=== PATIENT | female | born 1935 | race Caucasian/White ===

== ENCOUNTER 2017-12-29 05:32 | Emergency (ER) | payer MEDICARE ==
[2017-12-29] MEDS ORDERED: Acetaminophen TAB* 325 MG PO ONE (06:08)
--- NOTE | 2017-12-29 06:16 | ED ---
Back Pain - HPI Summary HPI Summary: Patient presents with low back and coccyx pain status post fall at 4 AM this morning. She reports she has MS and occasionally has difficulty with strength especially on the right side. She was up going to the bathroom and upon returning to her bed using her walker, she reports she lost her footing and fell back onto her bottom that all the way back hitting her head. She resides in her son's [facility] and landed on concrete. She denies numbness, tingling or new onset weakness in her lower extremities however she does have a good bit of soreness and aching in her coccyx and low back region. This is made worse with flexion at the hips and lumbar spine. She is able to move her legs at baseline. She denies any new incontinence of urine and no incontinence of her bowel since fall. Additionally, she denies loss of consciousness, headache, change in vision (note: She always has double vision due to her MS), nausea, vomiting, fatigue, neck pain, upper back pain, chest pain, abdominal pain. She also denies any preceding symptoms such as dizziness, shortness of breath, weakness and no symptoms to correlate with pneumonia or urinary tract infection. History of diabetes, hypertension and thyroid disorder all of which she treats with medication. Reports her glucose levels her labile and she can range from 150-270. She reports she does not note any change in her symptoms when her blood sugar is high. Will check today. It is also noted that her blood pressure is high however she is quite uncomfortable and anxious at this time. Systolic blood pressure decreased after evaluation and reassurance. 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 - son Pain Intensity: 6 - Allergies/Home Medications Allergies/Adverse Reactions: Allergies Allergy/AdvReac Type Severity Reaction Status Date / Time Latex, Natural Rubber Allergy Rash And Verified 12/29/17 05:37 Itching Penicillins Allergy Hives Verified 12/29/17 05:37 Home Medications: Home Medications Aspirin [Aspirin Childrens 81 MG] 81 mg PO DAILY 12/29/17 [History Confirmed ] Calcium Carb/D3/Magnesium/Zinc [Patrick Mag Zinc + D3 Tablet] 1 each PO DAILY [History Confirmed 12/29/17] Cranberry 500 mg PO DAILY 12/29/17 [History Confirmed 12/29/17] Esomeprazole Magnesium [Nexium] 40 mg PO EVERY OTHER DAY 12/29/17 [History Confirmed 12/29/17] Folic Acid TAB* [Folvite TAB*] 1 mg PO DAILY 12/29/17 [History Confirmed ] Insulin Aspart [Novolog] 10 unit SQ TID WITH MEALS 12/29/17 [History Confirmed 12/29/17] Insulin Glargine,Hum.rec.anlog [Lantus] 30 unit SC QPM 12/29/17 [History Confirmed 12/29/17] Lactobac No.41/Bifidobact No.7 [Probiotic-10] 1 cap PO DAILY 12/29/17 [History Confirmed 12/29/17] Lecithin, Soy [Lecithin] 1,200 mg PO DAILY 12/29/17 [History Confirmed 12/29/17] Levothyroxine TAB* [Synthroid TAB*] 100 mcg PO DAILY 12/29/17 [History Confirmed 12/29/17] Meloxicam [Mobic] 7.5 mg PO DAILY 12/29/17 [History Confirmed 12/29/17] Ropinirole HCl 0.25 mg PO QID 12/29/17 [History Confirmed 12/29/17] Valsartan [Valsartan 320 MG] 320 mg PO DAILY 12/29/17 [History Confirmed ] PMH/Surg Hx/FS Hx/Imm Hx Previously Healthy: Yes Endocrine/Hematology History: Reports: Hx Thyroid Disease - takes levothyroxine Denies: Hx Anticoagulant Therapy - fish oil daily, Hx Blood Disorders, Hx Anemia, Hx Unexplained Bleeding Cardiovascular History: Reports: Hx Hypertension Denies: Hx Atrial Fibrillation, Hx Congestive Heart Failure, Hx Hypercholesterolemia, Hx Hypotension, Hx Myocardial Infarction History: Denies: Hx Acute Renal Failure, Hx Chronic Renal Failure Musculoskeletal History: Reports: Hx Arthritis - started meloxicam 3 weeks ago - works well for "inflammed" joints Sensory History: Reports: Hx Contacts or Glasses, Hx Vision Problem - diploplia d/t MS Opthamlomology History: Reports: Hx Contacts or Glasses Neurological History: Reports: Other Neuro Impairments/Disorders - MS w/ Rt side weakness - Immunization History Date of Tetanus Vaccine: unk Date of Influenza Vaccine: none Infectious Disease History: Yes Infectious Disease History: Denies: Traveled Outside the [place] in Last 30 Days - Family History Known Family History: Positive: None - Social History Occupation: Retired Lives: With Family - basement apt of son's home Alcohol Use: None Hx Substance Use: No Substance Use Type: Reports: None Hx Tobacco Use: No Smoking Status (MU): Never Smoked Tobacco Physical Exam Vital Signs On Initial Exam: Initial Vitals Temp Pulse Resp BP Pulse Ox 98.1 F 70 16 186/78 99 12/29/17 05:34 12/29/17 05:34 12/29/17 05:34 12/29/17 05:34 12/29/17 05:34 Diagnostics - Vital Signs Vital Signs Temp Pulse Resp BP Pulse Ox 12/29/17 05:34 98.1 F 70 16 186/78 99 - Laboratory Result Diagrams: 12/29/17 08:49 12/29/17 09:03 Lab Statement: Any lab studies that have been ordered have been reviewed, and results considered in the medical decision making process. Re-Evaluation - Re-Evaluation First Eval Change: Unchanged Second Eval Change: Improved - with ketorolac - did not need morphine - transitioning easier - able to stand, pivot to commode and wheelchair with minimal assistance (baseline as she uses walker at home). Back Pain Course/Dx - Course Course Of Treatment: CT cervical spine/brain: no acute findings. XR's: Glucose : 150 (good range for her). No relief w/ acetaminophen and XR questionable w/ OA and osteopenia - CT confirms compression fx's and stenosis. Given injury and location of pain, suspect compression fx's are new vs old. Pain was controlled with meds here and she will go home w/ precautions, meds and educated both pt and son about danger s/sx of when to return to ED. They agree w/ plan. - Diagnoses Provider Diagnoses: Closed compression fracture of lumbar vertebra, Spinal stenosis, lumbar, Fall from standing Discharge - Sign-Out/Discharge Documenting (check all that apply): Patient Departure - Discharge Plan Condition: Stable Disposition: HOME Prescriptions: Lidocaine PATCH 5%* [Lidoderm 5% Patch*] 1 patch TRANSDERM DAILY PRN #20 patch PRN Reason: Pain Patient Education Materials: Vertebral Compression Fracture (ED), Fall Prevention for Older Adults (ED), Lumbar Spinal Stenosis (ED) Referrals: Naif Rojas MD [Primary Care Provider] - Additional Instructions: You appear to have compression fractures of your L2 and L5 lumbar vertebrae. Based on your injury, location of your pain and severity of pain, it is suspected that these are new fractures. You will continue anti-inflammatory pain medication (either mobic OR ibuprofen but not both) for this injury. You may also try topical pain patches over the area for relief. It is important that you transition slowly from lying to sitting and to standing. You may also want to avoid movement such as rotation, extension of your lower back (i.e. arching), and flexing (i.e. bending forward). You may alternate ice and heat for relief as well. Follow-up with your PCP early next week to address progression of injury and prescribe osteopenia treatment as needed - call today to schedule an appointment. *If in the meantime you develop change in bowel or bladder habits change in lower extremity paresthesia or weakness or new onset of numbness tingling or weakness, return to the emergency department. - Billing Disposition and Condition Condition: STABLE Disposition: Home
--- NOTE | 2017-12-29 06:48 | RAD ---
EXAM: CT Head Without Intravenous Contrast CLINICAL HISTORY: 82 years old, female; Injury or trauma; Fall; Initial encounter; Concussion / head injury; Without loss of consciousness; Injury date: ; Additional info: Fall - struck head TECHNIQUE: Axial computed tomography images of the head/brain without intravenous contrast. All CT scans at this facility use at least one of these dose optimization techniques: automated exposure control; mA and/or kV adjustment per patient size (includes targeted exams where dose is matched to clinical indication); or iterative reconstruction. Coronal reformatted images were created and reviewed. COMPARISON: No relevant prior studies available. FINDINGS: Brain: No acute intracranial hemorrhage. No acute infarct. Periventricular and subcortical white matter changes are present, with no associated mass effect, nonspecific, but may be compatible with microvascular ischemic disease. Midline shift: No midline shift. Ventricles: Unremarkable. No ventriculomegaly. Bones/joints: Unremarkable. No acute fracture. Soft tissues: Unremarkable. Sinuses: Unremarkable as visualized. No acute sinusitis. Mastoid air cells: Unremarkable as visualized. No mastoid effusion. IMPRESSION: No acute intracranial hemorrhage. To contact [facility] with a general question: Operations Center - [phone] For direct physician to physician contact: Physician Hotline - [phone] [facility] (ad Facility ID #[id number])
--- NOTE | 2017-12-29 07:18 | RAD ---
EXAM: CT Cervical Spine Without Intravenous Contrast EXAM DATE/TIME: 12/29/2017 6:36 AM CLINICAL HISTORY: 82 years old, female; Injury or trauma; Fall; Initial encounter; Concussion /head injury; Injury date: ; Additional info: Fall - struck head TECHNIQUE: Axial computed tomography images of the cervical spine without intravenous contrast. All CT scans at this facility use at least one of these dose optimization techniques: automated exposure control; mA and/or kV adjustment per patient size (includes targeted exams where dose is matched to clinical indication); or iterative reconstruction. Coronal and sagittal reformatted images were created and reviewed. COMPARISON: No relevant prior studies available. FINDINGS: Vertebrae: Degenerative changes of multiple articular facets are demonstrated bilaterally. There is moderate spondylosis. Soft tissues: Unremarkable. Sinuses: Small amount of fluid is identified in the sphenoid sinus. DISCS/SPINAL CANAL/NEURAL FORAMINA: There is narrowing of the intervertebral disc spaces at C3-4-5-6-7 and at T1-2. C2-C3: At C2-3, there is approximately 2 mm anterior malalignment of C2 in relationship to C3. C3-C4: At C3-4, there is a disc osteophyte complex with impingement on the neural foramen bilaterally and mild spinal stenosis. There is approximately 3 mm anterior malalignment of C3 in relationship to C4. C4-C5: At C4-5, there is a disc osteophyte complex with impingement on the neural foramen bilaterally and moderate spondylosis. There is some cord compression. C5-C6: At C5-6, there is a disc osteophyte complex with impingement on the neural foramen bilaterally and moderate to marked spinal stenosis. There is some cord compression. C6-C7: At C6-7, there is a disc osteophyte complex with impingement on the neural foramen bilaterally and mild to moderate spinal stenosis C7-T1: No disc herniation. No spinal stenosis. No neural foraminal narrowing. IMPRESSION: 1. No acute fracture. 2. Vertebral body malalignment at C2-3-4, more likely degenerative in nature. 3. Extensive degenerative changes of the cervical spine, as described above. 4. Sphenoid sinusitis. To contact [facility] with a general question: [facility] - [phone] For direct physician to physician contact: Physician Hotline - [phone] [facility] ([facility] Facility ID #[id number])
--- NOTE | 2017-12-29 08:09 | RAD ---
Indication: Fall, back pain. 3 views of the lumbar spine are reviewed. There is diffuse osteopenia noted. There is mild compression of the superior endplate of L5 and L2. Age of these are indeterminate. There is disc space narrowing at T12-L1, L3-L4 and L5-S1. Facet arthropathy is noted. IMPRESSION: Mild compression superior endplate of L2 and L5 age is indeterminate but appear to be old. Degenerative disc disease with levoscoliosis centered at L3 noted at multiple levels.
[2017-12-29] MEDS ORDERED: Morphine INJ* 4 MG/ML 1 ML SYRINGE (NEW SYRINGE VERSION) IV ONE ×2 (08:43→10:08)
[2017-12-29] MEDS ORDERED: Ondansetron INJ* 2 MG/ML VIAL IV ONE (08:44)
--- NOTE | 2017-12-29 08:58 | RAD ---
HISTORY: possible acute compression fx, L2, L5 COMPARISONS: Radiograph dated December 29, 2017 TECHNIQUE: Multiple contiguous axial CT scans were obtained of the lumbar spine without intravenous contrast, with coronal and sagittal multiplanar reformations. FINDINGS: SPINAL CANAL: Evaluation of the central canal is limited on CT technique; however, there is no obvious canalicular mass or epidural hemorrhage. ALIGNMENT: There is a scoliotic curvature of the spine. VERTEBRAL BODIES: There is diffuse osteopenia. There is loss of vertebral body height at L5 and L2. There is no see any osseous retropulsion. JOINTS: There is diffuse facet osteoarthritis. MUSCULATURE: Unremarkable INTERVERTEBRAL DISCS: There is diffuse loss of intervertebral disc height throughout the spine. AXIAL IMAGES: T12-L1: There is no osseous neural foraminal narrowing or central canal stenosis. L1-L2: There is no osseous neural foraminal narrowing or central canal stenosis. L2-L3: There is no osseous neural foraminal narrowing or central canal stenosis. L3-L4: There is marginal osteophyte formation with bilateral facet hypertrophy. There is moderate bilateral neuroforaminal narrowing. There is mild narrowing of the central canal. L4-L5: There is a broad-based disc bulge with ligamentous and facet hypertrophy. There is moderate right and severe left neuroforaminal narrowing. There is severe narrowing of the central canal. L5-S1: There is broad-based disc bulge. There is bilateral facet hypertrophy. There is severe bilateral neuroforaminal narrowing. There is moderate narrowing of the central canal. SOFT TISSUES: The visualized soft tissues of the abdomen are unremarkable. OTHER: None IMPRESSION: 1. OSTEOPENIA. 2. SCOLIOSIS. 3. AGAIN NOTED ARE AGE-INDETERMINATE COMPRESSION DEFORMITIES OF L2 AND L5 WITHOUT OSSEOUS RETROPULSION. 4. DEGENERATIVE DISC DISEASE AND OSTEOARTHRITIS. 5. THERE IS SEVERE NARROWING OF THE CENTRAL CANAL AT L4-L5 WITH MODERATE NARROWING AT L5-S1 AND MILD NARROWING AT L3-L4. 6. THERE IS MULTILEVEL NEUROFORAMINAL NARROWING DESCRIBED ABOVE..
[2017-12-29 09:04] LABS: Hematocrit 39 % (35-47); Hemoglobin 13.4 g/dl (12.0-16.0); Mean Corpuscular HGB Conc 34 g/dl (31-36); Mean Corpuscular Hemoglobin 33 pg (27-31); Mean Corpuscular Volume 96 fL (80-97); Mean Platelet Volume 7.8 um3 (7.4-10.4); Platelet Count 223 10^3/ul (150-450); Red Blood Count 4.09 10^6/ul (4.00-5.40); Red Cell Distribution Width 13 % (10.5-15); White Blood Count 11.5 10^3/ul (3.5-10.8)
[2017-12-29 09:30] LABS: INR 0.87 (0.77-1.02)
[2017-12-29 09:43] LABS: EGFR Non-African American 47.1 (>60)
--- NOTE | 2017-12-29 09:43 | RAD ---
INDICATION: Sacrococcygeal injury. COMPARISON: Correlation is made with a prior x-ray study of the lumbar spine of the same day. TECHNIQUE: 3 views of the sacrococcygeal spine were obtained. FINDINGS: There is a lumbar scoliosis convex toward the left side. There is a mild compression fracture of the superior endplate of the L5 vertebra, age indeterminate. No additional fractures are seen. IMPRESSION: COMPRESSION FRACTURE OF THE L5 VERTEBRAL BODY, AGE INDETERMINATE.
[2017-12-29] MEDS ORDERED: Ketorolac INJ* 30 MG/ML 1 ML VIAL IV PUSH ONE (09:58)
[2017-12-29] MEDS ORDERED: Insulin ASPART (NF) 100 UNIT/ML VIAL SUBCUT ONE (10:27)
[2017-12-29 10:34] VITALS: BP 147/62
[2017-12-29] MEDS ORDERED: Lidocaine PATCH 5%* 1 PATCH TRANSDERM ONE (11:21)
== END 2017-12-29 11:51 | disposition home or self-care (01) ==
LOC: ED 05:32
DX: S32.050A Wedge compression fracture of fifth lumbar vertebra, initial encounter for closed fracture (principal); W18.30XA Fall on same level, unspecified, initial encounter; Y93.01 Activity, walking, marching and hiking; Y92.039 Unspecified place in apartment as the place of occurrence of the external cause; E11.9 Type 2 diabetes mellitus without complications; Z79.4 Long term (current) use of insulin; E07.9 Disorder of thyroid, unspecified; I10 Essential (primary) hypertension; Z88.0 Allergy status to penicillin; Z91.040 Latex allergy status
CPT/HCPCS: 36415; 70450; 72100; 72125; 72131; 72220; 80048; 85027; 85610; 85730; 96374; 96375; 99284; A9270-GY; J1885; J2270; J2405

== ENCOUNTER 2018-07-03 06:57 | Emergency (ER) | payer MEDICARE ==
[2018-07-03] MEDS ORDERED: traMADol TAB* 50 MG PO ONE (07:26)
[2018-07-03 08:20] LABS: ABS Basophils 0 10^3/ul (0-0.2); ABS Eosinophils 0 10^3/ul (0-0.6); ABS Lymphocytes 1.4 10^3/ul (1.0-4.8); ABS Monocytes 0.3 10^3/ul (0-0.8); ABS Neutrophils 3.8 10^3/ul (1.5-7.7); ABS Nucleated RBC 0 10^3/ul; Eosinophil % 0.8 %; Hematocrit 38 % (33-41); Hemoglobin 12.7 g/dL (12.0-16.0); Mean Corpuscular HGB Conc 34 g/dL (31-36); Mean Corpuscular Hemoglobin 33 pg (27-31); Mean Corpuscular Volume 97 fL (80-97); Mean Platelet Volume 8.1 fL (7.4-10.4); Nucleated Red Blood Cells % 0; Platelet Count 217 10^3/uL (150-450); Red Blood Count 3.89 10^6 /uL (3.70-4.87); Red Cell Distribution Width 13 % (10.5-15); White Blood Count 5.6 10^3/uL (3.5-10.8)
[2018-07-03 08:27] LABS: Urine Appearance Clear; Urine Bilirubin Negative (Negative); Urine Blood Negative (Negative); Urine Color Yellow; Urine Glucose Negative (Negative); Urine Ketones Negative (Negative); Urine Nitrite Negative (Negative); Urine Protein Negative (Negative); Urine Specific Gravity 1.014 (1.010-1.030); Urine Urobilinogen Negative (Negative)
[2018-07-03 08:30] LABS: Albumin 3.8 g/dL (3.2-5.2); Albumin/Globulin Ratio 1.4 (1-3); BUN/Creatinine Ratio 30.9 (8-20); Calcium 9.4 mg/dL (8.6-10.3); EGFR Non-African American 37.2 (>60); Globulin 2.8 g/dL (2-4); Potassium 4.3 mmol/L (3.5-5.0); Total Bilirubin 0.5 mg/dL (0.2-1.0); Total Protein 6.6 g/dL (6.4-8.9)
[2018-07-03] MEDS ORDERED: Cyclobenzaprine TAB* 10 MG PO ONE (10:27)
[2018-07-03] MEDS ORDERED: Ibuprofen TAB* 600 MG PO ONE (10:28)
[2018-07-03] MEDS ORDERED: predniSONE TAB* 20 MG PO ONE (10:28)
[2018-07-03 11:39] VITALS: BP 135/87
--- NOTE | 2018-07-03 11:59 | ED ---
Back Pain - HPI Summary HPI Summary: Patient is an 82-year-old female who presents to the ED with mid low back pain. She denies any trauma or injury. She denies any falls. She states this is acute onset 2 days ago and has been worsening. She has a home health aide at home on Monday/s for 2 hours each. Otherwise she is fairly independent. She does have a history of MS. No history of spinal fractures. She is endorsing pain at rest, however with movement and increase in pain at 9/ 10. She denies any numbness or tingling to the bilateral lower extremities. She denies any bladder or bowel dysfunction other than her usual. She states she is incontinent at baseline. Pain is radiating to the left rib cage. She denies any CP or SOB. - History of Current Complaint Chief Complaint: Barbara Stated Complaint: "BACK PAIN" PER EMS Time Seen by Provider: 07/03/18 06:59 Hx Obtained From: Patient Onset/Duration: Sudden Onset Onset/Duration: Started Hours Ago Timing: Constant Back Pain Location: Is Discrete @ - mid low back pain Severity Initially: Severe Severity Currently: Severe Pain Intensity: 7 Pain Scale Used: 0-10 Numeric Character: Sharp Aggravating Symptom(s): Movement, Lifting, Bending Alleviating Symptom(s): Rest, Position Associated Signs And Symptoms: Positive: Negative. Negative: Swelling, Redness , Bruising, Bladder Incontinence, Bowel Incontinence, Weight Loss, Pain with Weight Bearing - Risk Factors AAA Risk Factors: Negative TAD Risk Factors: Negative Cauda Equina Risk Factors: Negative Epidural Abscess Risk Factors: Negative - Allergies/Home Medications Allergies/Adverse Reactions: Allergies Allergy/AdvReac Type Severity Reaction Status Date / Time Latex, Natural Rubber Allergy Rash And Verified 07/03/18 07:11 Itching Penicillins Allergy Hives Verified 07/03/18 07:11 Home Medications: Home Medications Chlorthalidone 25 mg PO DAILY 07/03/18 [History Confirmed 07/03/18] Famotidine 40 mg PO DAILY 07/03/18 [History Confirmed 07/03/18] Losartan Potassium 200 mg PO DAILY 07/03/18 [History Confirmed 07/03/18] Multivitamin [Multivitamins] 1 cap PO DAILY 07/03/18 [History Confirmed 07/03/18 ] amLODIPine TAB* [Norvasc 5 mg TAB*] 10 mg PO DAILY 07/03/18 [History Confirmed 07/03/18] PMH/Surg Hx/FS Hx/Imm Hx Previously Healthy: Yes Endocrine/Hematology History: Reports: Hx Thyroid Disease - takes levothyroxine Denies: Hx Anticoagulant Therapy - fish oil daily, Hx Blood Disorders, Hx Anemia, Hx Unexplained Bleeding Cardiovascular History: Reports: Hx Hypertension Denies: Hx Atrial Fibrillation, Hx Congestive Heart Failure, Hx Hypercholesterolemia, Hx Hypotension, Hx Myocardial Infarction History: Denies: Hx Acute Renal Failure, Hx Chronic Renal Failure Musculoskeletal History: Reports: Hx Arthritis - started meloxicam 3 weeks ago - works well for "inflammed" joints Sensory History: Reports: Hx Contacts or Glasses, Hx Vision Problem - diploplia d/t MS Opthamlomology History: Reports: Hx Contacts or Glasses, Hx Vision Problem - diploplia d/t MS Neurological History: Reports: Other Neuro Impairments/Disorders - MS w/ Rt side weakness - Surgical History Surgery Procedure, Year, and Place: APPY, CARDIAC STENT - Immunization History Date of Tetanus Vaccine: unk Date of Influenza Vaccine: none Hx Pertussis Vaccination: No Immunizations Up to Date: Yes Infectious Disease History: No Infectious Disease History: Denies: Traveled Outside the [place] in Last 30 Days - Family History Known Family History: Positive: None - Social History Occupation: Unemployed Lives: Alone Alcohol Use: None Hx Substance Use: No Substance Use Type: Reports: None Hx Tobacco Use: No Smoking Status (MU): Never Smoked Tobacco Review of Systems Constitutional: Negative Negative: Fever, Chills, Fatigue, Skin Diaphoresis Negative: Palpitations, Chest Pain Negative: Shortness Of Breath, Cough Genitourinary: Negative Positive: no symptoms reported, see HPI Positive: Arthralgia - mid low back pain Skin: Negative Neurological: Negative All Other Systems Reviewed And Are Negative: Yes Physical Exam Triage Information Reviewed: Yes Vital Signs On Initial Exam: Initial Vitals Temp Pulse Resp BP Pulse Ox 98.3 F 85 18 134/74 100 07/03/18 07:01 07/03/18 07:01 07/03/18 07:01 07/03/18 07:01 07/03/18 07:01 Vital Signs Reviewed: Yes Appearance: Positive: Well-Appearing, Well-Nourished Skin: Positive: Warm, Skin Color Reflects Adequate Perfusion Head/Face: Positive: Normal Head/Face Inspection Eyes: Positive: EOMI, Conjunctiva Clear Neck: Positive: Supple Respiratory/Lung Sounds: Positive: Clear to Auscultation, Breath Sounds Present Cardiovascular: Positive: Pulses are Symmetrical in both Upper and Lower Extremities Musculoskeletal: Positive: Pain @ - mid low back pain - no pain to the bilateral ribs Neurological: Positive: Sensory/Motor Intact, Alert, Oriented to Person Place, Time, Speech Normal Psychiatric: Positive: Affect/Mood Appropriate Diagnostics - Vital Signs Vital Signs Temp Pulse Resp BP Pulse Ox 07/03/18 11:38 98.6 F 80 16 135/87 98 07/03/18 10:32 135/57 07/03/18 10:10 74 94 07/03/18 10:02 137/59 07/03/18 09:32 68 122/52 93 07/03/18 09:02 70 113/48 98 07/03/18 09:00 67 94 07/03/18 08:50 73 122/52 94 07/03/18 08:49 70 85 07/03/18 08:04 145/55 07/03/18 07:56 79 139/57 96 07/03/18 07:02 83 134/74 99 07/03/18 07:01 98.3 F 85 18 134/74 100 - Laboratory Lab Results: Lab Results 07/03/18 07/03/18 07/03/18 Range/Units 07:55 08:03 08:03 WBC 5.6 (3.5-10.8) 10^3/uL RBC 3.89 (3.70-4.87) 10^6 /uL Hgb 12.7 (12.0-16.0) g/dL Hct 38 (33-41) % MCV 97 (80-97) fL MCH 33 H (27-31) pg MCHC 34 (31-36) g/dL RDW 13 (10.5-15) % Plt Count 217 (150-450) 10^3/uL MPV 8.1 (7.4-10.4) fL Neut % (Auto) 68.2 % Lymph % (Auto) 24.0 % [place] % (Auto) 6.2 % Eos % (Auto) 0.8 % Baso % (Auto) 0.8 % Absolute Neuts (auto) 3.8 (1.5-7.7) 10^3/ul Absolute Lymphs (auto) 1.4 (1.0-4.8) 10^3/ul Absolute Monos (auto) 0.3 (0-0.8) 10^3/ul Absolute Eos (auto) 0 (0-0.6) 10^3/ul Absolute Basos (auto) 0 (0-0.2) 10^3/ul Absolute Nucleated RBC 0 10^3/ul Nucleated RBC % 0 Sodium 133 L (135-145) mmol/L Potassium 4.3 (3.5-5.0) mmol/L Chloride 98 L (101-111) mmol/L Carbon Dioxide 27 (22-32) mmol/L Anion Gap 8 (2-11) mmol/L BUN 42 H (6-24) mg/dL Creatinine 1.36 H (0.51-0.95) mg/dL Est GFR ( Amer) 45.0 (>60) Est GFR (Non-Af Amer) 37.2 (>60) BUN/Creatinine Ratio 30.9 H (8-20) Glucose 237 H (70-100) mg/dL Calcium 9.4 (8.6-10.3) mg/dL Total Bilirubin 0.50 (0.2-1.0) mg/dL AST 16 (13-39) U/L ALT 11 (7-52) U/L Alkaline Phosphatase 57 (34-104) U/L Total Protein 6.6 (6.4-8.9) g/dL Albumin 3.8 (3.2-5.2) g/dL Globulin 2.8 (2-4) g/dL Albumin/Globulin Ratio 1.4 (1-3) Urine Color Yellow Urine Appearance Clear Urine pH 5.0 (5-9) Ur Specific [place] 1.014 (1.010-1.030) Urine Protein Negative (Negative) Urine Ketones Negative (Negative) Urine Blood Negative (Negative) Urine Nitrate Negative (Negative) Urine Bilirubin Negative (Negative) Urine Urobilinogen Negative (Negative) Ur Leukocyte Esterase Negative (Negative) Urine Glucose Negative (Negative) Urine Ascorbic Acid * A (Negative) Result Diagrams: 07/03/18 08:03 07/03/18 08:03 Lab Statement: Any lab studies that have been ordered have been reviewed, and results considered in the medical decision making process. Back Pain Course/Dx - Course Course Of Treatment: Patient is evaluated for acute low back pain which is radiating to the left rib cage. She denies any urinary symptoms outside baseline. Patient endorses incontinence at baseline, but denies any bowel dysfunction. She denies any numbness or tingling to the bilateral lower extremities. She has good strength in the bilateral upper and lower extremities. History of clear located over the spine between L1 and L5. No step-off noted. No bruising noted. No signs of trauma. CT abdomen and pelvis , lumbar spine and thoracic spine obtained. This shows an endplate fracture of L1 with 2 mm retropulsion of the middle column without significant resulting acquired spinal stenosis. Unsure when she acquired this. Patient denies any falls since one year ago. Tramadol 25 mg given with mild improvement. Discussed case with social sciences department chair in the ED who is willing to place further health care at home with the patient at this time as she begins to improve. Patient is able to stand, pivot, and ambulate. Flexeril given prior to discharge. She is also given prednisone in the ED. She will be prescribed prednisone and tramadol and is encouraged Tylenol and ibuprofen. - Diagnoses Differential Diagnosis/HQI/PQRI: Positive: Fracture, Strain, Sprain Provider Diagnoses: Vertebral compression fracture Discharge - Sign-Out/Discharge Documenting (check all that apply): Patient Departure Patient Received Moderate/Deep Sedation with Procedure: No - Discharge Plan Condition: Stable Disposition: HOME Prescriptions: predniSONE TAB* [Deltasone TAB*] 50 mg PO DAILY #4 tab MDD 1 traMADol TAB* [Ultram*] 50 mg PO Q8H PRN #15 tab MDD 3 PRN Reason: Pain Patient Education Materials: Bone Density Test (DC) Referrals: Naif Rojas MD [Primary Care Provider] - Sebastian Mathew MD [Medical Doctor] - Additional Instructions: You're diagnosed with an endplate fracture of L1 on the vertebra As this was not caused by a fall or other trauma, I recommend you follow up with your PCP as this may be from low bone density Tramadol is prescribed to you at 3 times a day as needed for discomfort You may also take Tylenol 650 mg 3 times daily You may also take ibuprofen 600 mg 3 times daily, however do not exceed 3 days Moist heat to the area for discomfort - Billing Disposition and Condition Condition: STABLE Disposition: Home
== END 2018-07-03 11:38 | disposition home or self-care (01) ==
LOC: ED 06:57
DX: S32.019A Unspecified fracture of first lumbar vertebra, initial encounter for closed fracture (principal); S32.059A Unspecified fracture of fifth lumbar vertebra, initial encounter for closed fracture; G35 Multiple sclerosis; Z88.0 Allergy status to penicillin; X58.XXXA Exposure to other specified factors, initial encounter; Y92.9 Unspecified place or not applicable; I10 Essential (primary) hypertension; E07.9 Disorder of thyroid, unspecified
CPT/HCPCS: 36415; 72128; 72131; 74176; 80053; 81003; 85025; 99284; A9270-GY; J7512

== ENCOUNTER 2018-08-14 18:52 | Emergency (ER) | payer MEDICARE ==
--- NOTE | 2018-08-14 19:13 | UC ---
Dizzy HPI HPI Summary: 82 yo female with the acute onset of vertigo 3 days ago. Was in bathroom getting dressed bent over to pull up her pant and had severe vertigo and fell back landing on toilet seat Has had vertigo ever since Occurs when supine as well worse with position change no QURESHI no URI symptoms no CP or SOB no palpitations Has MS, DM , HTN and CAD uses a walker - History Of Current Complaint Chief Complaint: UCDizziness Stated Complaint: DIZZINESS Time Seen by Provider: 08/14/18 19:12 Hx Obtained From: Patient Onset/Duration: Sudden Onset, Lasting Days Timing: Constant Severity Initially: Severe Severity Currently: Moderate Pain Intensity: 0 Pain Scale Used: 0-10 Numeric Character: Room Spinning Aggravating Factor(s): Position Change, Supine To Erect, Change In Head Position Alleviating Factor(s): Other - moving slowly Associated Signs And Symptoms: Positive: Unsteady Gait. Negative: Nausea, Vomiting, Diaphoresis, Tinnitus, Chest Pain, SOB, Palpitations, Visual Changes, Decreased Oral Intake, Change In Medication, Change In Diet, OTC Medications - Allergies/Home Medications Allergies/Adverse Reactions: Allergies Allergy/AdvReac Type Severity Reaction Status Date / Time Latex, Natural Rubber Allergy Rash And Verified 08/14/18 19:04 Itching Penicillins Allergy Hives Verified 08/14/18 19:04 Home Medications: Home Medications Alendronate Sodium [Fosamax-] 08/14/18 [History Confirmed 08/14/18] PMH/Surg Hx/FS Hx/Imm Hx Previously Healthy: Yes Endocrine History: Diabetes Cardiovascular History: Hypertension, Myocardial Infarction Neurological History: Other Other Neurological History: MS Other History Of: Negative For: Anticoagulant Therapy - fish oil daily - Surgical History Surgical History: Yes Surgery Procedure, Year, and Place: APPENDIX, CARDIAC STENT, CHOLECYSTECTOMY, TUMOR REMOVED FROM FOOT, BILAT CATARACTS - Family History Known Family History: Positive: Hypertension, Other - twin sister of CVA age 65 - Social History Alcohol Use: None Substance Use Type: None Smoking Status (MU): Never Smoked Tobacco Review of Systems All Other Systems Reviewed And Are Negative: Yes Constitutional: Positive: Negative Skin: Positive: Negative Eyes: Positive: Negative ENT: Positive: Negative Respiratory: Positive: Negative Cardiovascular: Positive: Negative Gastrointestinal: Positive: Negative Genitourinary: Positive: Negative Motor: Positive: Negative Neurovascular: Positive: Other - vertigo Musculoskeletal: Positive: Negative Neurological: Positive: Negative Psychological: Positive: Negative Physical Exam Triage Information Reviewed: Yes Appearance: No Pain Distress Vital Signs: Initial Vital Signs Temp 98.2 F 08/14/18 18:59 Pulse 92 08/14/18 18:59 Resp 16 08/14/18 18:59 BP 172/99 08/14/18 18:59 Pulse Ox 98 08/14/18 18:59 Eyes: Positive: Conjunctiva Clear, Other: - small pupils ENT: Negative: Hearing grossly normal - slight LA POSTA, Nasal congestion, Nasal drainage, Tonsillar swelling, Tonsillar exudate, Muffled voice, Hoarse voice, Uvula midline Dental: Negative: Abscess @ Neck: Positive: Nontender, No Lymphadenopathy, Other: - no bruits Respiratory: Positive: Lungs clear, Normal breath sounds, No respiratory distress, No accessory muscle use Cardiovascular: Positive: RRR, No Murmur Musculoskeletal: Positive: ROM Intact, No Edema Neurological: Positive: Alert, Other: - GCS 15/15, no pronator drift, no facial weakness, unsteady gait with walker, tremors Psychological Exam: Normal Skin Exam: Normal Diagnostics - Laboratory Lab Results: FS glucose 268 - EKG Cardiac Rate: NL Cardiac Rhythm: Sinus: Normal Ectopy: PVCs ST Segment: Normal Dizzy Course/Dx - Differential Dx/Diagnosis Provider Diagnosis: Vertigo, constant Discharge - Sign-Out/Discharge Documenting (check all that apply): Patient Departure All imaging exams completed and their final reports reviewed: No Studies - Discharge Plan Condition: Stable Disposition: HOME-RECOMMEND TO ED Referrals: Naif Rojas MD [Primary Care Provider] - Additional Instructions: I suggest you go directly to the ER for evaluation of your vertigo - Billing Disposition and Condition Condition: STABLE Disposition: Home-Recommend to ED
[2018-08-14 19:44] VITALS: BP 146/56
== END 2018-08-14 19:57 | disposition home health service (06) ==
LOC: UCEAST 18:52
DX: R42 Dizziness and giddiness (principal); R26.81 Unsteadiness on feet; E11.9 Type 2 diabetes mellitus without complications; G35 Multiple sclerosis; Z95.5 Presence of coronary angioplasty implant and graft; Z88.0 Allergy status to penicillin; Z91.040 Latex allergy status
CPT/HCPCS: 93005; 99212; G0463

== ENCOUNTER 2018-08-14 20:11 | Emergency (ER) | payer MEDICARE ==
[2018-08-14] MEDS ORDERED: Meclizine TAB* 12.5 MG PO ONE (21:15)
--- NOTE | 2018-08-14 21:59 | ED ---
Dizziness - HPI Summary HPI Summary: Pt has been dizzy since Monday. Was sitting on toilet to put on clothes, when she bent over to put on pants everything started spinning. Fell back onto her seat, already has an issue with balancing due to MS. Continued dizziness throughout the day and was present with movement on Monday. Sitting up aggravates her dizziness. She reports nausea but denies any vomiting, headaches , and decreased ROM. She has a Hx of MS and stated that it was causing her shaking and double vision. She has no Hx of strokes or Sz. She reported that closing her eyes and lying down alleviated the symptoms but change of position and movement was aggravating for her. - History Of Current Complaint Chief Complaint: EDDizziness Stated Complaint: DIZZY/COMING FROM UC PER PT Time Seen by Provider: 08/14/18 21:04 Hx Obtained From: Patient Onset/Duration: Still Present, Suddenly - 08/12/18 while sitting up on the toilet. Severity Initially: Severe Severity Currently: Mild Character: Room Spinning, Dizzy Aggravating Factor(s): Position Change, Other - movement Alleviating Factor(s): Lying Down, Closing Eyes Associated Signs And Symptoms: Positive: Negative - Headache, ROM issues, abnormal shaking, Nausea, Visual Changes - room spinning, Other:. Negative: Vomiting - Allergies/Home Medications Allergies/Adverse Reactions: Allergies Allergy/AdvReac Type Severity Reaction Status Date / Time Latex, Natural Rubber Allergy Rash And Verified 08/14/18 21:49 Itching Penicillins Allergy Hives Verified 08/14/18 21:49 PMH/Surg Hx/FS Hx/Imm Hx Previously Healthy: No Endocrine/Hematology History: Reports: Hx Thyroid Disease Denies: Hx Anticoagulant Therapy - fish oil daily, Hx Blood Disorders, Hx Anemia, Hx Unexplained Bleeding Cardiovascular History: Reports: Hx Hypertension Denies: Hx Atrial Fibrillation, Hx Congestive Heart Failure, Hx Hypercholesterolemia, Hx Hypotension, Hx Myocardial Infarction History: Denies: Hx Acute Renal Failure, Hx Chronic Renal Failure Musculoskeletal History: Reports: Hx Arthritis - started meloxicam 3 weeks ago - works well for "inflammed" joints Sensory History: Reports: Hx Contacts or Glasses, Hx Vision Problem - diploplia d/t MS Opthamlomology History: Reports: Hx Contacts or Glasses, Hx Vision Problem - diploplia d/t MS Neurological History: Reports: Other Neuro Impairments/Disorders - MS w/ Rt side weakness - Surgical History Surgery Procedure, Year, and Place: APPENDIX, CARDIAC STENT, CHOLECYSTECTOMY, TUMOR REMOVED FROM FOOT, BILAT CATARACTS - Immunization History Date of Tetanus Vaccine: unk Date of Influenza Vaccine: none Infectious Disease History: Yes Infectious Disease History: Denies: Traveled Outside the [place] in Last 30 Days - Family History Known Family History: Positive: None, Hypertension, Other - twin sister of CVA age 65 - Social History Alcohol Use: None Hx Substance Use: No Substance Use Type: Reports: None Hx Tobacco Use: No Smoking Status (MU): Never Smoked Tobacco Review of Systems Positive: Diplopia Positive: Nausea. Negative: Vomiting Musculoskeletal: Other - abnormal shaking Negative: Headache, Weakness All Other Systems Reviewed And Are Negative: Yes Physical Exam - Summary Physical Exam Summary: Appearance: Well-appearing, Well-nourished, lying in bed comfortably Skin: Warm, dry, no obvious rash Eyes: sclera anictericLeft gaze nystagmus, no trouble with gaze fixation ENT: mucous membranes moist, pharynx appears normal Neck: Supple, nontender Respiratory: Clear to auscultation, no signs of respiratory distress Cardiovascular: Normal S1, S2. No murmurs. Normal distal pulses in tibial and radial bilaterally. Abdomen: Soft, nontender, normal active bowel sounds present Musculoskeletal: Normal, Strength/ROM Intact, Motor function in all 4 extremities is normal and symmetric. There is no rigidity or tremor noted. Neurological: A&Ox3, awake and alert, mentation is normal, speech is fluent and appropriate, Level of consciousness nml. The patient is alert and oriented. 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 Gaze is conjugate and without nystagmus. Peripheral vision is intact to confrontation. There are no gross sensory abnormalities to light touch. There is no truncal or fine motor ataxia. Gait is normal. Psychiatric: affect is normal, does not appear anxious or depressed Triage Information Reviewed: Yes Vital Signs On Initial Exam: Initial Vitals Temp Pulse Resp BP Pulse Ox 98.2 F 85 16 145/86 99 08/14/18 20:24 08/14/18 20:24 08/14/18 20:24 08/14/18 20:24 08/14/18 20:24 Vital Signs Reviewed: Yes Diagnostics - Vital Signs Vital Signs Temp Pulse Resp BP Pulse Ox 08/14/18 20:24 98.2 F 85 16 145/86 99 - Laboratory Lab Statement: Any lab studies that have been ordered have been reviewed, and results considered in the medical decision making process. Dizzy Course/Dx - Course Course Of Treatment: Pt has been dizzy since Monday. Was sitting on toilet to put on clothes, when she bent over to put on pants everything started spinning. Fell back onto her seat, already has an issue with balancing due to MS. Continued dizziness throughout the day and was present with movement on Monday. Her symptoms are couple of days old and are not consistent with a central cause of vertigo. The pt will be discharged with benign paroxysmal positional vertigo home with instructions to follow up with her PCP within 3 days and to return to the ED with any new or worsening symptoms. - Diagnoses Provider Diagnoses: Benign paroxysmal positional vertigo Discharge - Sign-Out/Discharge Documenting (check all that apply): Patient Departure - discharge Patient Received Moderate/Deep Sedation with Procedure: No - Discharge Plan Condition: Good Disposition: HOME Prescriptions: Meclizine TAB* [Antivert 12.5 TAB*] 25 mg PO TID PRN #20 tab PRN Reason: Dizziness Patient Education Materials: Benign Paroxysmal Positional Vertigo (ED) Referrals: Naif Rojas MD [Primary Care Provider] - - Billing Disposition and Condition Condition: GOOD Disposition: Home - Attestation Statements Document Initiated by Homer: Yes Documenting Scribe: Rustam Matias Provider For Whom Homer is Documenting (Include Credential): Joaquín Moran MD Scribe Attestation: Rustam Munoz scrmikeed for Joaquín Moran MD on 08/15/18 at 0503. Scribe Documentation Reviewed: Yes Provider Attestation: The documentation as recorded by the Rustam castillo accurately reflects the service I personally performed and the decisions made by me, Joaquín Moran MD Status of Scribe Document: Viewed
[2018-08-14 23:03] VITALS: BP 138/84
== END 2018-08-14 23:02 | disposition home or self-care (01) ==
LOC: ED 20:11
DX: H81.10 Benign paroxysmal vertigo, unspecified ear (principal); R11.0 Nausea; I10 Essential (primary) hypertension; G35 Multiple sclerosis; M19.90 Unspecified osteoarthritis, unspecified site; E07.9 Disorder of thyroid, unspecified; R26.81 Unsteadiness on feet; E11.9 Type 2 diabetes mellitus without complications; Z95.5 Presence of coronary angioplasty implant and graft; Z88.0 Allergy status to penicillin; Z91.040 Latex allergy status
CPT/HCPCS: 99282; A9270-GY

== ENCOUNTER 2019-04-02 10:27 | Emergency (ER) | payer MEDICARE, MEDICAID ==
[2019-04-02 11:01] VITALS: BP 157/61
--- NOTE | 2019-04-02 11:49 | UC ---
Complaint Female HPI - HPI Summary HPI Summary: LEFT FLANK PAIN THAT OCCASIONALLY RADIATES DOWN TO THE LEFT GROIN FOR THE PAST WEEK. SYMPTOMS WAX AND WANE. OCCASIONALLY HAS SOME NAUSEA. PATIENT DENIES ANY URINARY SYMPTOMS. SHE HAS BASELINE INCONTINENCE. NO PERSONAL HISTORY OF KIDNEY STONES. - History Of Current Complaint Chief Complaint: UCBackPain Stated Complaint: BACK PAIN Time Seen by Provider: 04/02/19 11:19 Hx Obtained From: Patient Onset/Duration: Gradual Onset, Lasting Days, Still Present Timing: Constant Severity Initially: Moderate Severity Currently: Moderate Pain Intensity: 8 Pain Scale Used: 0-10 Numeric Character: Sharp Aggravating Factor(s): Nothing Alleviating Factor(s): Nothing Associated Signs And Symptoms: Positive: Back Pain, Nausea. Negative: Fever, Vaginal Bleeding/Discharge - Allergies/Home Medications Allergies/Adverse Reactions: Allergies Allergy/AdvReac Type Severity Reaction Status Date / Time Latex, Natural Rubber Allergy Rash And Verified 04/02/19 11:01 Itching Penicillins Allergy Hives Verified 04/02/19 11:01 PMH/Surg Hx/FS Hx/Imm Hx - Additional Past Medical History Additional PMH: MULTIPLE SCLEROSIS Endocrine History: Diabetes, Hypothyroidism Cardiovascular History: Cardiac Disease, Hypertension Other History Of: Negative For: Anticoagulant Therapy - fish oil daily - Surgical History Surgical History: Yes Surgery Procedure, Year, and Place: APPENDIX, CARDIAC STENT, CHOLECYSTECTOMY, TUMOR REMOVED FROM FOOT, BILAT CATARACTS - Family History Known Family History: Positive: Hypertension, Other - twin sister of CVA age 65 - Social History Alcohol Use: None Substance Use Type: None Smoking Status (MU): Never Smoked Tobacco Review of Systems All Other Systems Reviewed And Are Negative: Yes Constitutional: Positive: Negative Skin: Positive: Negative Respiratory: Positive: Negative Cardiovascular: Positive: Negative Gastrointestinal: Positive: Abdominal Pain, Nausea Genitourinary: Positive: Other - LEFT FLANK PAIN Physical Exam Triage Information Reviewed: Yes Appearance: Well-Appearing, No Pain Distress, Well-Nourished, Other: - MILD TREMOR Vital Signs: Initial Vital Signs Temp 98.5 F 04/02/19 10:59 Pulse 75 04/02/19 10:59 Resp 16 04/02/19 10:59 BP 157/61 04/02/19 10:59 Pulse Ox 99 04/02/19 10:59 Laboratory Tests 04/02/19 11:46 POC Urine Color Yellow POC Urine Clarity Clear POC Urine pH 5.5 POC Ur Specif Minerva 1.020 POC Urine Protein Negative POC Ur Glucose (UA) Negative POC Urine Ketones Negative POC Urine Blood Negative POC Urine Nitrite Negative POC Urine Bilirubin Negative POC Urine Urobilinogen 0.2 POC U Leukocyte Esteras Trace Vital Signs Reviewed: Yes Eyes: Positive: Conjunctiva Clear ENT: Positive: Hearing grossly normal Neck: Positive: Supple Respiratory: Positive: No respiratory distress, No accessory muscle use Cardiovascular: Positive: Pulses Normal Abdomen Description: Positive: Nontender, Soft. Negative: CVA Tenderness (R), CVA Tenderness (L), Distended, Guarding Musculoskeletal: Positive: No Edema Neurological: Positive: Alert Psychological: Positive: Age Appropriate Behavior Skin: Negative: Rashes Diagnostics - Radiology CT ABD/PELVIS W/O CONTRAST Radiology Interpretation Completed By: Radiologist Summary of Radiographic Findings: 1. NO HYDRONEPHROSIS OR NEPHROLITHIASIS. 2. STABLE COMPRESSION DEFORMITY OF L1. 3. DIVERTICULOSIS Complaint Female Dx - Course Course Of Treatment: CT ABDOMEN PELVIS WITH NO ACUTE PATHOLOGY. TRACE LEUKS IN URINE DIP NOT HIGHLY SUGGESTIVE OF UTI. SPECIMEN WILL BE SENT FOR CULTURE AND PATIENT WILL BE CALLED IF TREATMENT NEEDS TO BE STARTED. POSSIBLE MUSCLE STRAIN. ADVISED REST , STRETCHING, OTC MEDICATIONS NEEDED. FOLLOW-UP WITH PCP IF SYMPTOMS ARE NOT IMPROVING. TO THE ER WITHOUT FAIL IF SYMPTOMS WORSEN. - Differential Dx/Diagnosis Provider Diagnosis: Left flank pain Discharge ED - Sign-Out/Discharge Documenting (check all that apply): Patient Departure All imaging exams completed and their final reports reviewed: Yes - Discharge Plan Condition: Stable Disposition: HOME Patient Education Materials: Flank Pain (ED) Referrals: Naif Rojas MD [Primary Care Provider] - 3 Days Additional Instructions: NO ACUTE ABNORMALITY SEEN ON CT SCAN TODAY. TRACE BACTERIA IN YOUR URINE. SPECIMEN SENT FOR CULTURE. WE WILL CALL YOU IF YOU NEED TO BE TREATED. UNCLEAR ETIOLOGY OF YOUR DISCOMFORT. CONTINUE TAKING NSAIDS NEEDED. HEATING PAD NEEDED. FOLLOW-UP WITH YOUR PCP THIS WEEK FOR REEVALUATION. GO TO THE ER WITHOUT FAIL IF YOU DEVELOP WORSENING PAIN, FEVER OR ANY OTHER CONCERNING SYMPTOMS. - Billing Disposition and Condition Condition: STABLE Disposition: Home
== END 2019-04-02 13:09 | disposition home or self-care (01) ==
LOC: UCEAST 10:27
DX: R10.9 Unspecified abdominal pain (principal); R11.0 Nausea; E11.9 Type 2 diabetes mellitus without complications; G35 Multiple sclerosis; I10 Essential (primary) hypertension; K57.30 Diverticulosis of large intestine without perforation or abscess without bleeding; M43.8X6 Other specified deforming dorsopathies, lumbar region; Z91.040 Latex allergy status; Z88.0 Allergy status to penicillin
CPT/HCPCS: 74176; 81003; 87077; 87086; 87186; 99211; G0463

== ENCOUNTER 2019-04-23 15:35 | Inpatient (IN) | payer MEDICARE, MEDICAID ==
[2019-04-23] MEDS ORDERED: NS 0.9% 1000 ML** 1,000 ML IV ONE (15:53)
[2019-04-23] MEDS ORDERED: Al Hydrox/Mg Hydrox/Simet LIQ* 30 ML UDC PO ONE (15:54)
[2019-04-23] MEDS ORDERED: Lidocaine 2% VISCOUS* 15 ML UDC PO ONE (15:54)
--- NOTE | 2019-04-23 16:01 | ED ---
HPI Chest Pain - HPI Summary HPI Summary: The patient is an 83-year-old female arriving via ambulance with severe CP onset around 1200 today. She reports she had just eaten lunch when she developed a sharp, burning pain in the mid and upper sternal areas. The pain radiates into the b/l arms. She endorses BLE edema, nausea, and vomiting. She denies any abdominal pain, calf pain, or sore throat. Symptoms currently rated 8 /10 in severity. EMS administered NTG to no relief. No history of blood clots. Recently had UTI but finished course of antibiotics. She was also started on Prilosec three days ago without previous GI bleeding. Unsure of last endoscopy. Past medical history significant for thyroid disease, cardiac stent without PR, hypertension, arthritis. Nonsmoker, no EtOH, no substance use. Medications reviewed. Allergies noted. - History of Current Complaint Chief Complaint: EDChestPainROMI Time Seen by Provider: 04/23/19 15:43 Hx Obtained From: Patient Onset/Duration: Started Hours Ago, Still Present Time of Onset: 12:00 Timing: Constant Initial Severity: Severe Current Severity: Severe Pain Intensity: 8 Pain Scale Used: 0-10 Numeric Chest Pain Location: Mid Sternal, Upper Sternal Chest Pain Radiates: Yes Chest Pain Radiates To:: Arm - b/l Character: Burning, Sharp/Stabbing Aggravating Factor(s): Nothing Alleviating Factor(s): Nothing Associated Signs and Symptoms: Positive: Chest Pain, Nausea, Vomiting, Edema. Negative: Calf Pain/Swelling - swelling no pain, Other: - sore throat - Allergy/Home Medications Allergies/Adverse Reactions: Allergies Allergy/AdvReac Type Severity Reaction Status Date / Time Latex, Natural Rubber Allergy Rash And Verified 04/02/19 11:01 Itching Penicillins Allergy Hives Verified 04/02/19 11:01 Home Medications: Home Medications Alendronate (NF) [Fosamax (NF)] 70 mg PO WEEKLY 04/23/19 [History Confirmed 01/30] Ascorbic Acid TAB* [Vitamin C TAB*] 500 mg PO QAM 04/23/19 [History Confirmed 04/23/19] Aspirin TAB* [Aspirin 325 MG TAB*] 325 mg PO QPM 04/23/19 [History Confirmed 01/30] Chlorthalidone TAB* [Hygroton TAB*] 25 mg PO QAM 04/23/19 [History Confirmed 01/30] Famotidine TAB 40 MG(NF) [Pepcid TAB 40 MG(NF)] 40 mg PO BID 04/23/19 [History Confirmed 04/23/19] Flaxseed Oil 1,000 mg PO DAILY 04/23/19 [History Confirmed 04/23/19] Insulin Glargine,Hum.rec.anlog [Basaglar Kwikpen 100 inuts/ml 3 ml x 5 Pens] 25 units SUBCUT BEDTIME 04/23/19 [History Confirmed 04/23/19] L.acidoph,Paracasei, B.lactis [Probiotic] 1 cap PO QAM 04/23/19 [History Confirmed 04/23/19] Lecithin 1,200 mg PO BID 04/23/19 [History Confirmed 04/23/19] Losartan TAB* [Cozaar TAB*] 200 mg PO QAM 04/23/19 [History Confirmed 04/23/19] Meloxicam(NF) [Mobic(NF)] 7.5 mg PO BID 04/23/19 [History Confirmed 04/23/19] Multivitamins/Minerals TAB* [Theragran/minerals TAB*] 1 tab PO QAM 04/23/19 [ History Confirmed 04/23/19] Rosuvastatin (NF) [Crestor (NF)] 5 mg PO QAM 04/23/19 [History Confirmed ] amLODIPine TAB* [Norvasc 5 mg TAB*] 10 mg PO QAM 04/23/19 [History Confirmed 01/30] PMH/Surg Hx/FS Hx/Imm Hx Endocrine/Hematology History: Reports: Hx Thyroid Disease Denies: Hx Anticoagulant Therapy - fish oil daily, Hx Blood Disorders, Hx Anemia, Hx Unexplained Bleeding Cardiovascular History: Reports: Hx Hypertension, Other Cardiovascular Problems/ Disorders - cardiac stent Denies: Hx Atrial Fibrillation, Hx Congestive Heart Failure, Hx Hypercholesterolemia, Hx Hypotension, Hx Myocardial Infarction History: Denies: Hx Acute Renal Failure, Hx Chronic Renal Failure Musculoskeletal History: Reports: Hx Arthritis - started meloxicam 3 weeks ago - works well for "inflammed" joints Sensory History: Reports: Hx Contacts or Glasses, Hx Vision Problem - diploplia d/t MS Opthamlomology History: Reports: Hx Contacts or Glasses, Hx Vision Problem - diploplia d/t MS Neurological History: Reports: Other Neuro Impairments/Disorders - MS w/ Rt side weakness - Surgical History Surgical History: Yes Surgery Procedure, Year, and Place: APPENDIX, CARDIAC STENT, CHOLECYSTECTOMY, TUMOR REMOVED FROM FOOT, BILAT CATARACTS - Immunization History Date of Tetanus Vaccine: unk Date of Influenza Vaccine: none Infectious Disease History: No Infectious Disease History: Denies: Traveled Outside the [place] in Last 30 Days - Family History Known Family History: Positive: Hypertension, Other - twin sister of CVA age 65 - Social History Alcohol Use: None Hx Substance Use: No Substance Use Type: Reports: None Hx Tobacco Use: No Smoking Status (MU): Never Smoked Tobacco Review of Systems Negative: Sore Throat Positive: Chest Pain - burning mid-sternal Positive: Vomiting, Nausea Positive: Myalgia - b/l arms, Edema. Negative: Other - calf pain All Other Systems Reviewed And Are Negative: Yes Physical Exam - Summary Physical Exam Summary: Constitutional: Well-developed, Well-nourished, Alert. (-) Distressed Skin: Warm, Dry HENT: Normocephalic; Atraumatic Eyes: Conjunctiva normal Neck: Musculoskeletal ROM normal neck. (-) JVD, (-) Stridor, (-) Tracheal deviation Cardio: Rhythm regular, rate normal, Heart sounds normal; Intact distal pulses; The pedal pulses are 2+ and symmetric. Radial pulses are 2+ and symmetric. (-) Murmur Pulmonary/Chest wall: Effort normal. (-) Respiratory distress, (-) Wheezes, (-) Rales Abd: Soft, (-) tenderness, (-) Distension, (-) Guarding, (-) Rebound Musculoskeletal: (-) Edema Lymph: (-) Cervical adenopathy Neuro: Alert, Oriented x3 Psych: Mood and affect Normal Triage Information Reviewed: Yes Vital Signs On Initial Exam: Initial Vitals Temp Pulse Resp BP Pulse Ox 97.8 F 82 18 160/88 96 04/23/19 15:45 04/23/19 15:45 04/23/19 15:45 04/23/19 15:45 04/23/19 15:45 Vital Signs Reviewed: Yes Procedures - Sedation Patient Received Moderate/Deep Sedation with Procedure: No Diagnostics - Vital Signs Vital Signs Temp Pulse Resp BP Pulse Ox 04/23/19 15:45 97.8 F 82 18 160/88 96 - Laboratory Result Diagrams: 04/23/19 16:15 04/23/19 16:15 Lab Statement: Any lab studies that have been ordered have been reviewed, and results considered in the medical decision making process. - Radiology CXR Radiology Interpretation Completed By: Radiologist Summary of Radiographic Findings: Impression: No evidence for active cardiopulmonary disease. ED physician has reviewed this report. - CT Chest/Thorax CTA CT Interpretation Completed By: Radiologist Summary of CT Findings: Impression: 1. Positive multifocal pulmonary emboli, the largest a nearly occlusive thrombus at the right upper lobe pulmonary artery. These imaging findings were reviewed in person and discussed with Dr. Lutz at 1730 hours on April 23, 2019. 2. 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 3. Additional chronic and degenerative changes described in the body the report. ED physician has reviewed this report. - EKG 1547 Cardiac Rate: NL - 83 BPM EKG Rhythm: Sinus Rhythm Summary of EKG Findings: An EKG at 1547 reveals normal sinus rhythm at 83 BPM, slight ST depressions in V2-V5. Dr. Hi has reviewed and interpreted this EKG. 1700 Cardiac Rate: NL - 77 BPM EKG Rhythm: Sinus Rhythm Summary of EKG Findings: An EKG at 1700 reveals normal sinus rhythm at 77 BPM, no STEMI. Dr. Hi has reviewed and interpreted this EKG. Re-Evaluation - Re-Evaluation First Eval Re-Evaluation Time: 17:00 Comment: Patient agreeable with plan for admission. Chest Pain Course/Dx - Course Course Of Treatment: 83 y/o female arriving via ambulance with mid and upper sternal CP radiating into b/l arms onset around 1200 today. NTG to no relief given by EMS. Hx significant for cardiac stent without PR, HTN. Physical exam without acute abnormality. An EKG at 1547 reveals normal sinus rhythm at 83 BPM , slight ST depressions in V2-V5. Patient placed on cardiac cath technician. IV access obtained. Patient administered fluids, GI cocktail, Morphine, and Zofran. Blood work is significant for sodium of 132, creatinine of 1.17, glucose of 123 , and troponin of 0.32. Repeat EKG at 1700 reveals normal sinus rhythm at 77 BPM , no STEMI. CXR is negative for acute pathology. Chest/Thorax CTA is positive for multifocal PE. Patient administered ASA, Morphine, and 2x NTG. Patient placed on Heparin drip. I spoke with Dr. Lutz from cardiology, and he will come see the patient in the ED. He recommends admission after a quick echo. Dr. Up from the hospitalist services accepts the patient for admission. Patient understands and agrees with plan. - Diagnoses Provider Diagnoses: NSTEMI (non-ST elevated myocardial infarction), Pulmonary emboli - Provider Notifications Discussed Care Of Patient With: Roddy Lutz - cardiology Time Discussed With Above Provider: 16:55 Instructed by Provider To: Other - I spoke with Dr. Lutz, and he will come see the patient in the ED. He recommends admission after a quick echo. Dr. Up from the hospitalist services accepts the patient for admission [1830]. Discharge ED - Sign-Out/Discharge Documenting (check all that apply): Patient Departure - Patient accepted for admission by Dr. Up. - Discharge Plan Condition: Stable Disposition: ADMITTED TO [facility] Referrals: Naif Rojas MD [Primary Care Provider] - - Billing Disposition and Condition Condition: STABLE Disposition: Admitted to [facility] - Attestation Statements Document Initiated by Homer: Yes Documenting Scribe: Zakiya Winter Provider For Whom Homer is Documenting (Include Credential): Dr. Maicol Hi DO Scribe Attestation: Zakiya Munoz scribed for Dr. Maicol Hi DO on 04/23/19 at 1943. Scribe Documentation Reviewed: Yes Provider Attestation: The documentation as recorded by the Zakiya castillo accurately reflects the service I personally performed and the decisions made by me, Dr. Maicol Hi DO Status of [place] Document: Viewed
[2019-04-23 16:27] LABS: ABS Eosinophils 0.1 10^3/ul (0-0.6); ABS Lymphocytes 1.6 10^3/ul (1.0-4.8); ABS Monocytes 0.7 10^3/ul (0-0.8); Eosinophil % 0.7 %; Hematocrit 40 % (35-47); Hemoglobin 14.3 g/dL (12.0-16.0); Lymphocyte % 17.2 %; Mean Corpuscular HGB Conc 36 g/dL (31-36); Mean Corpuscular Hemoglobin 34 pg (27-31); Mean Corpuscular Volume 95 fL (80-97); Mean Platelet Volume 7.7 fL (7.4-10.4); Platelet Count 240 10^3/uL (150-450); Red Blood Count 4.16 10^6 /uL (3.70-4.87); Red Cell Distribution Width 13 % (10-15); White Blood Count 9.4 10^3/uL (3.5-10.8)
--- OUTSIDE RECORDS SUMMARY | 2019-04-23 16:34 | XMS REPORT | Continuity of Care Document ---
:1935 External Reference #:[id number] Author Name Naif Rojas MD Address [address] [place] [address] Care Team Providers Name Role Phone Naif Rojas MD - Family Care Team Information Lace Inspector Medicine Visiting Nurse Services - Home Health Care Team Information Lace Inspector Chris Baltazar MD - Neurology Care Team Information Lace Inspector [phone] Operations Logistics Analyst Prosthetics And Orthotics - Care Team Information Lace Inspector Prosthetic/Orthotic Supplier Problems Active Problems Provider Date Acute upper respiratory infection, Naif Schwartz M.D. Onset: 03/05/2018 unspecified Multiple sclerosis Naif Schwartz M.D. Onset: 03/05/2018 Essential hypertension Naif Schwartz M.D. Onset: 03/05/2018 Diabetes mellitus Naif Schwartz M.D. Onset: 03/05/2018 Social History Type Date Description Comments Sex Unknown Tobacco Use Start: Unknown Nonsmoker Smoking Status Reviewed: 04/12/17 Nonsmoker Allergies, Adverse Reactions, Alerts Active Allergies Reaction Severity Comments Date Penicillins hives 04/12/2017 Adhesives on ekg leads causes red areas 04/12/2017 Nickel 12/18/2017 Medications Active Medications SIG Qnty Indications Ordering Date Provider Ciprofloxacin HCL 1 by mouth twice 14tabs N39.0 Naif Lara 04/05/2019 250mg a day MD [place] Tablets Pen [place] use with novolog 1Box Naif Lara 03/15/2019 31G X 8 mm pen dx: e11.9 MD Crystal Misc last appt: 11/22/18 Rosuvastatin Calcium 1 by mouth every 90tabs Naif Lara 11/22/2018 day MD Crystal 5mg Tablets Rolling Walker , With dx multiple 1units G35 Aleksandra BrooksNola 10/31/2018 Wheels And Brakes vilma Swan M.D. duration lifelong Orthopedic Shoes Needs Naif Chavis 10/16/2018 Orthopedic Shoes Jethro Schwartz Dwuxdwn-Ipmjsjfmq-Sht 1 tab by mouth qd 30tabs Nola 07/26/2018 guerrero D MD Crystal 400-166.7-133.3mg-mg- Uni Tablets mm Easy Touch Glucose test up to 2x day 100units Nola 07/19/2018 Test Strips dx:e11.9 MD [facility] Strips Alendronate Sodium take 1 tablet by 4tabs S32.000A Nola 07/09/2018 70mg mouth every week MD [place] Tablets Famotidine take 1 tablet by 180tabs K21.9 Naif T. 03/19/2018 40mg Tablets mouth twice daily MD Crystal Amlodipine Besylate 1 by mouth every 90tabs I10 Naif TNola 03/19/2018 day MD [facility] 10mg Tablets Pooja Serenity can substitue any 1Box Nola 12/18/2017 Pads/Heavy pad that is MD Crystal Absorbency/Long covered under Pads insuarance dx: n39.3 Meloxicam Take 1 Tablet By 60tabs Nola 11/16/2017 7.5mg Tablets Mouth Two Times MD Crystal Daily Chlorthalidone 1 by mouth every 90tabs I10 Naif TNola 10/25/2017 25mg Am MD Crystal Tablets Losartan Potassium Take 2 Tablets By 180tabs Naif TNola 10/20/2017 Mouth Every Day MD Crystal 100mg Tablets Basaglar Kwikpen 25 units sq 9ml . 06/02/2017 nightly MD Crystal 100Unit/ML Solution Pen-Inject Levothyroxine Sodium 1 by mouth every 90tabs Naif TNola 05/15/2017 day MD Crystal 100mcg Tablets Probiotic 2 by mouth 3 days Unknown Capsules a week Novolog Flexpen inject 10 units 45ml Naif T. before meals dx MD Crystal 100Unit/ML Solution e11.8. - last Pen-Inject seen 05/10/18 Aspir-[address] Stoner 1 po qd Unknown 1200mg Capsules Multivitamin Adults qd Unknown Tablets Tramadol HCL 1 by mouth every 90tabs Naif Jane 50mg 8 hours as needed MD Crystal Tablets Immunizations Description No Information Available Vital Signs Date Vital Result Comment 04/05/2019 11:53am BP Systolic 120 mmHg BP Diastolic 58 mmHg Heart Rate 68 /min Body Temperature 96.2 F Respiratory Rate 16 /min Height 65 inches 5'5" Weight 204.00 lb BMI (Body Mass Index) 33.9 kg/m2 03/21/2019 2:42pm BP Systolic 124 mmHg BP Diastolic 50 mmHg Heart Rate 82 /min Body Temperature 97.7 F Respiratory Rate 16 /min Height 65 inches 5'5" Weight 200.00 lb BMI (Body Mass Index) 33.3 kg/m2 Results Test Acquired Date Facility Test Result H/L Range Note Urine Culture And 04/02/2019 [facility] [place] Urine SEE RESULT 1 Sensitivities Culture BELOW Poc Urinalysis 04/02/2019 [facility] [place] Poc Glucose, NEGATIVE Negative Urine Poc Bilirubin, Urine NEGATIVE Negative Poc Ketone, Urine NEGATIVE Negative Poc Specific [place], Urine 1.020 Normal 1.010-1.030 Poc Blood, Urine NEGATIVE Negative 2 Poc pH, Urine 5.5 Normal 5-9 Poc Protein, Urine NEGATIVE Negative Poc Urobilinogen, Urine 0.2 Negative Poc Nitrite, Urine NEGATIVE Negative Poc Leukocytes, Urine TRACE Negative Poc Color, Urine YELLOW Poc Clarity, Urine CLEAR Laboratory test 03/21/2019 family medicine Hemoglobin A1c 7.5 % High 4.1- 5.7 finding (607)- - (Fma) Laboratory test 10/15/2018 Hospital (General) [facility] [place] Lab Test SEE ATTACHED finding 1 SEE RESULT BELOW Name: CHRISTIANE CÁRDENAS : [address]: Cassie Khalil MD Acct: [id number] Unit: [id number] AGE: 83 Location: [facility] Re04/02/19 SEX: F Status: DEP ER SPEC: [id number] WILLIAM: 04/02/19-[address] [facility] DR: Cassie Khalil MD REQ: [id number] RECD: 04/02/19 STATUS: ABHI PAREKH DR: Naif Rojas MD _ SOURCE: URINE SPDESC: ORDERED: Urine Culture Procedure Result Reported Site Urine Culture Final 04/05/19- 0901 ML Organism 1 ENTEROCOCCUS FAECALIS [place] Count >100,000 (Many) CFU/ML 1. ENTEROCOCCUS FAECALIS M.I.C. RX --------- ------ Ampicillin <=2 S Penicillin 2 S Ciprofloxacin 1 S Gentamicin High Level S Levofloxacin 1 S Linezolid 2 S Nitrofurantoin <=16 S * Quinupristin/Dalfopristin 8 R * Streptomycin High Level S Tetracycline <=1 S Doxycycline - Deduced S * Minocycline - Deduced S Tigecycline <=0.12 S Vancomycin 1 S Imipenem-Deduced S * Ampicillin/Sulbactam-Deduced S CONTINUED ON NEXT PAGE DEPARTMENT OF PATHOLOGY, [address] [place] [address] Forest Montero M.D. Director [facility] # [id number] Specimen: [id number] Collected: 04/02/19 Received: 04/02/19 (Continued) Procedure Result Reported Site Urine Culture Final (continued) * These antibiotics are not available in the [facility] Formulary Contact the Microbiology Department for any additional antibiotic reporting. * ML - Main Lab . END OF REPORT DEPARTMENT OF PATHOLOGY, [address] [place] [address] Forest Montero M.D. 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 I10 Essential (primary) hypertension Office Visit 11/22/2018 11:20a Main Office Naif Lara [id number] Lorenzo sclerosis MD Crystal 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 Assessments Date Code Description Provider 04/05/2019 N39.0 Urinary tract infection, site not specified Naif Rojas MD 03/21/2019 E11.8 Type 2 diabetes mellitus with unspecified Naif Rojas MD complications 03/21/2019 G35 Multiple sclerosis Naif Rojas MD 03/21/2019 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 Yes No Are there Barriers to Adherence? Yes No Has the patient been asked about herbal supplements and therapies, and OTC meds? Yes No Functional Status Description No Information Available Mental Status Description No Information Available Referrals Refer to Reason for Referral Status Appt Date [facility] orthopedic shoes Scheduled [address] [place] [address] [address] [place],[facility] [address] [phone]
[2019-04-23 16:43] LABS: ALT 16 U/L (7-52); AST 17 U/L (13-39); Albumin 4.5 g/dL (3.2-5.2); Albumin/Globulin Ratio 1.4 (1-3); Alkaline Phosphatase 64 U/L (34-104); Anion Gap 10 mmol/L (2-11); BUN/Creatinine Ratio 20.5 (8-20); Blood Urea Nitrogen 24 mg/dL (6-24); CO2 Carbon Dioxide 28 mmol/L (22-32); Calcium 9.8 mg/dL (8.6-10.3); Chloride 94 mmol/L (101-111); EGFR African American 53.5 (>60); EGFR Non-African American 44.2 (>60); Globulin 3.3 g/dL (2-4); Glucose 123 mg/dL (70-100); Potassium 3.5 mmol/L (3.5-5.0); Sodium 132 mmol/L (135-145); Total Protein 7.8 g/dL (6.4-8.9)
[2019-04-23] MEDS ORDERED: Ondansetron INJ* 2 MG/ML VIAL IV ONE (16:47)
[2019-04-23] MEDS ORDERED: Morphine 4 MG/ML VIAL (1 ml) 4 MG/ML VIAL IV ONE ×2 (16:47→17:49)
[2019-04-23 16:49] LABS: Troponin I 0.32 ng/mL (<0.03)
[2019-04-23] MEDS ORDERED: Iodixanol* (CONTRAST) 320 MG/ML 100 ML SDV IV ONE (17:05)
[2019-04-23] MEDS ORDERED: Aspirin 81 mg CHEW TAB* 81 MG TAB.CHEW PO ONE (17:41)
[2019-04-23] MEDS ORDERED: Heparin DRIP 25,000 UNITS(*) 25,000 UNITS/500 ML BAG IV SCH (17:45)
[2019-04-23] MEDS ORDERED: Nitro 2% OINT* (Nitroglycerin) 1 INCH/PAK PAK TOPICAL ONE (17:50)
[2019-04-23] MEDS ORDERED: Heparin VIAL(*) 5000 UNITS/ML VIAL (FIVE THOUSAND) IV SCH (18:00)
[2019-04-23 18:35] LABS: Cholesterol 156 mg/dL; LDL Cholesterol 84 mg/dL; Triglycerides 104 mg/dL
[2019-04-23 18:55] LABS: Activated Partial Thrombo Time 29.7 seconds (26.0-38.0); INR 1.03 (0.82-1.09)
[2019-04-23] MEDS ORDERED: Acetaminophen TAB* 325 MG PO PRN (18:59)
[2019-04-23] MEDS ORDERED: Dextrose 50% Syringe 50 ML* 25 GM/50 ML SYRINGE IV PUSH PRN (19:02)
[2019-04-23] MEDS ORDERED: Nitroglycerin TAB 0.4 MG* 0.4 MG TAB SL ONE ×2 (19:04→23:41)
[2019-04-23 19:36] LABS: Troponin I 0.44 ng/mL (<0.03)
[2019-04-23] MEDS ORDERED: Atorvastatin* 80 MG TAB PO ONE (21:00)
--- NOTE | 2019-04-23 21:21 | CONS ---
CARDIOLOGY CONSULTATION: DATE OF CONSULT: 04/23/19 INDICATION FOR CONSULTATION: Chest pain. HISTORY OF PRESENT ILLNESS: The patient is an 83-year-old female, who came to the emergency room because of severe chest pain. The patient states that she started noticing chest pain a couple of days ago, was sort of on and off, it was worse with eating meals, however, it did occur at rest when she was just sitting there, she did get shortness of breath. She denied any other symptoms. She does report that she has had a UTI recently that has decreased her activity. On arrival to the emergency room, the patient was complaining of 10/ 10 chest pain, she was writhing in the bed. Her initial EKG showed minimal ST segment depressions in lead V2 and V3. There was about [address] segment depression, but the concern was whether this could be a possible posterior wall myocardial infarction. The patient's initial troponin level was 0.32. I was called to the emergency room for evaluation. On my arrival, the patient could not get comfortable. She was having chest pain. She was short of breath. They did a repeat EKG on my arrival, which showed normal sinus rhythm, but the ST segment depressions had resolved. I did an urgent echocardiogram in the emergency room, which showed no focal wall abnormalities, no clear evidence of hypokinesis. The other structures look normal in size. Her aortic valve opened normally. I could not assess mitral regurgitation. The patient underwent an urgent CTA of her chest to rule out dissection and other abnormalities. This ultimately proved the patient had a pulmonary embolism as a cause for her symptoms. The patient was returned back to the emergency room, placed on IV heparin and medications. The patient will be admitted by the hospitalist. PAST MEDICAL HISTORY: Significant for hypertension, diabetes, hypercholesterolemia. Other past medical history could not obtain as the patient was in significant distress. I do not have any old records for evaluation. PAST SURGICAL HISTORY: Could not be obtained. HOME MEDICATIONS: 1. Insulin as directed. 2. Synthroid 100 mcg a day. 3. Amlodipine 10 mg a day. 4. Pepcid 40 mg b.i.d. 5. Fosamax 70 mg q.week. 6. Vitamin C 500 mg a day. 7. Aspirin 325 a day. 8. Mobic 7.5 mg b.i.d. 9. Losartan 200 mg a day. 10. Chlorthalidone 25 mg a day. 11. Crestor 5 mg a day. ALLERGIES: To PENICILLIN. FAMILY HISTORY: Could not be obtained as the patient was unable to have long conversation. SOCIAL HISTORY: The patient is . She recently moved back to this area from [place]. Her son is with her at the bedside. I could not obtain smoking or exercise history. REVIEW OF SYSTEMS: As per above. No changes in weight. No changes in bowel or bladder habits. PHYSICAL EXAMINATION: Height is 5 feet 5 inches, weight 210 pounds, temperature 97.8, heart rate is 82, blood pressure 160/88, respiratory rate is 18, oxygen saturation 96% on room air. Sclerae anicteric. Oropharynx is pink without erythema. Carotids are 2+ without bruits. JVD is normal. Thyroid is normal. Cardiac Exam: S1, S2 without any murmurs, rubs, or gallops. Lungs are clear to auscultation. There is no dullness to percussion. Abdomen is soft , nontender, nondistended with normoactive bowel sounds. Extremities: Show no edema. She has 2+ pulses throughout. The patient is awake and alert and oriented. DIAGNOSTIC STUDIES/LAB DATA: Chemistries within normal limits. BUN 24, creatinine 1.1, AST and ALT are normal. Troponin level 0.32. Total cholesterol 156, LDL cholesterol of 84. CBC within normal limits. EKG as described above. CTA of the chest as described. IMPRESSION: This is an 83-year-old female with history of diabetes and hypertension, who came to the emergency room with severe chest pain. The differential diagnosis include myocardial infarction, dissection, pulmonary embolism, pneumonia. Given the severity of her chest pain, urgent evaluation was requested. I did an bedside echocardiogram, which showed no obvious focal wall motion abnormalities. Ultimately, the patient had a CTA of her chest, which showed a pulmonary embolism. This accounts for her abnormal troponin level as you can get right heart strain from pulmonary embolism. For now my recommendation is to start anticoagulation. The patient will be admitted by the hospitalist service. The patient would probably benefit from a full echocardiogram in the morning to evaluate for right ventricular strain. This was discussed with Maicol Hi, emergency room doctor. [id number]/[facility] #: [id number] KONG
[2019-04-23] MEDS: Morphine INJ* 4 MG/ML 1 ML SYRINGE (NEW SYRINGE VERSION) IV PRN (22:11)
[2019-04-23] MEDS: Pantoprazole TAB * 40 MG TAB PO SCH (22:19)
[2019-04-23] MEDS: Metoprolol Tartrate TAB* 25 MG PO SCH (22:19)
[2019-04-23] MEDS: Famotidine TAB* 20 MG PO SCH (22:19)
--- NOTE | 2019-04-23 22:20 | HP ---
HISTORY AND PHYSICAL: DATE OF ADMISSION: 04/23/19 PRIMARY CARE PROVIDER: Dr. Rojas. [employer] DEVELOPER: Carlos Horton, the patient's son. CODE STATUS: DNR/DNI. CHIEF COMPLAINT: Chest pain. HISTORY OF PRESENT ILLNESS: An 83-year-old female with past medical history of insulin-dependent diabetes; CAD, status post distant PCI; hypothyroidism; CKD stage 2; osteoporosis; hypertension; hyperlipidemia; GERD; and essential tremor , who has presented to the emergency room with chest pain off and on for the last 3 days and one day of acute worsening chest pain. The patient reports she has had intermittent postprandial chest pain starting 4 days ago. It was mild initially and associated with eating and she assumed it was GERD and was actually started on pantoprazole, gradually she reported that the pain changed in quality and became central to her chest with radiation to her neck,bilateral shoulder blades and back. The pain became so intense on the day of presentation that she had to remain still most of the day and avoid eating. It was not associated with nausea, vomiting, shortness of breath, and it cannot be brought up by any specific musculoskeletal movements. It no longer seems related to food or exertion. She reports she has never had pain like this before. She reports she was generally in her usual state of health until about Monday with the exception of being recently treated for a UTI. Review of systems is as per below. EMERGENCY ROOM COURSE: In the ER, the patient's vital signs are stable on arrival with the blood pressure of 160/88, sinus 82, respiratory rate 17, satting 96% on room air, and afebrile. She had nitroglycerin in the EMS and aspirin 325 en route with no help in her pain. An EKG on arrival showed mild ST changes, 0.5 mm elevations in V6, but otherwise sinus with no acute ischemic changes. Initial troponin was 0.32. A CTA was done, which showed several presumed to be new subsegmental PEs in bilateral lungs with no evidence of saddle thrombus, right heart strain or dissection. The CTA did extend to the level of bilateral kidneys. Dr. Lutz performed at bedside a brief echocardiogram that showed no regional wall motion abnormalities. Because of her elevated troponin, chest pain, and new subsegmental bilateral pulmonary embolisms, the hospitalists team was asked to evaluate. PAST MEDICAL HISTORY: CAD, status post distant PCI; insulin-dependent diabetes ; hypothyroidism; CKD stage 2; osteoporosis; hypertension; hyperlipidemia; GERD ; essential tremor. PAST SURGICAL HISTORY: Appendectomy, cholecystectomy, left heel surgery, and cataracts. MEDICATIONS: Prior to admission: 1. Alendronate 70 mg p.o. weekly. 2. Calcium carbonate, D3, magnesium, and zinc 1 tab p.o. b.i.d. 3. Flaxseed oil 1000 mg p.o. daily. 4. Insulin, aspart 10 units subcu a.c. 5. Insulin glargine 25 units subcutaneous q.h.s. 6. Probiotic 1 cap p.o. q.a.m. 7. Lecithin 1200 mg p.o. b.i.d. 8. Losartan 200 mg p.o. q.a.m. 9. Meloxicam 7.5 mg p.o. b.i.d. 10. Multivitamin 1 tab p.o. q.a.m. 11. Rosuvastatin 5 mg p.o. q.a.m. 12. Amlodipine 10 mg p.o. q.a.m. 13. Ascorbic acid 500 mg p.o. q.a.m. 14. Aspirin 325 mg p.o. q.p.m. 15. Chlorthalidone 25 mg p.o. q.a.m. 16. Famotidine 40 mg p.o. b.i.d. 17. Levothyroxine 100 mcg p.o. q.a.m. 18. Recently started Protonix 40 mg p.o. daily. ALLERGIES: To LATEX, PENICILLINS, and RUBBER. FAMILY HISTORY: Her father from a brain aneurysm. Her sister is from a heart attack. Her mother is from lung cancer. SOCIAL HISTORY: The patient is a retired home health aide. She lives below her son in [place]. She ambulates with a walker and does not drive, but is otherwise independent in her ADLs and IADLs. She is a lifetime nontobacco user , non-alcohol user without history of illicits. REVIEW OF SYSTEMS: Constitutional: Negative for fever, chills, recent weight gain or loss, or malaise. HEENT: Negative for headaches, vision changes, teeth or sore throat. She does report that her chest pain radiates to her neck. Cardiovascular: Positive for chest pain. Negative for palpitations. Negative for orthopnea. Respiratory: Negative for shortness of breath, cough or pleuritic chest pain. GI: Negative for nausea, vomiting or diarrhea. Positive for postprandial pain several days prior to admission, presumed to be GERD. : Negative for dysuria or hematuria. Musculoskeletal: Negative for myalgias, arthralgias or weakness. Skin: Negative for new rashes or lesions. Neurologic: Negative for focal weakness, numbness or memory changes. Psychiatric: Negative for anxiety or depression. Endocrine: Negative for polyuria or polydipsia. Heme: Negative for easy bruising, bleeding or lymphadenopathy. PHYSICAL EXAMINATION GENERAL APPEARANCE: Initially, the patient was uncomfortable having chest pain when I arrived. After nitro paste and morphine, the patient looks much more comfortable and able to speak in full sentences, in no acute distress, pleasant and cooperative. VITAL SIGNS: At the time of physical exam, blood pressure is 146/62, heart rate 81, respiratory rate 14, oxygen saturation 99% on room air. HEENT: Pupils are equal and reactive. Extraocular muscles are intact with no scleral icterus. Mucous membranes are moist. NECK: She has no cervical or supraclavicular lymphadenopathy. Neck is supple with no evidence of JVD. RESPIRATORY: Lungs are Clear to auscultation bilaterally. CARDIAC: She has regular rate and rhythm with no murmurs, rubs or gallops. ABDOMEN: Belly is soft, nontender, nondistended in all 4 quadrants including epigastrics. SKIN: Has no new rashes or lesions. MUSCULOSKELETAL: She moves all 4 limbs spontaneously. EXTREMITIES: Right leg with 1+ pitting edema to mccullough. NEUROLOGIC: Cranial nerves II through XII are grossly intact. She is A and O x4. PSYCH: She is pleasant, cooperative with exam. DIAGNOSTIC STUDIES/LAB DATA: White blood cell count 9.4, hemoglobin 14.3, hematocrit 40, and platelets 240. Sodium 132, potassium 3.5, chloride 94, carbon dioxide 28, anion gap 10, BUN 24, creatinine 1.17. Glucose of 123, AST 17, ALT 16, alk phos 64, troponin 0.32. LDL cholesterol is 84, lipase was 30. Imaging included a chest x-ray, which shows no active intrathoracic pathology. An EKG was done, which showed sinus rhythm with ST elevations of 0.5 mm in V6, isolated, and a chest thorax CTA was performed, which showed positive multifocal pulmonary emboli, the largest nearly occlusive thrombus at the right upper lobe pulmonary artery, degenerative changes at the thoracic spine. ASSESSMENT AND PLAN: 83-year-old female with past medical history of insulin- dependent diabetes; coronary artery disease, status post distant percutaneous coronary intervention; hypothyroid; osteoporosis; hypertension; hyperlipidemia; gastroesophageal reflux disease; essential tremor, who is presenting to the emergency room with 3 days of intermittent chest pain and 1 day of acute chest pain at rest, found to have bilateral what appears to be low risk pulmonary embolisms in terms of position, but also with elevated troponin and dynamic EKG changes, concerning for NSTEMI with a WANDA score of 7. 1. Non-ST elevation myocardial infarction. There are no regional wall motion abnormalities. WANDA SCORE 7 -The patient has elevated troponin, EKG changes, and chest pain that responds to nitroglycerin. -Keep patient on a heparin drip. She has received 325 mg of aspirin. -We will give her a high intensity statin and low dose beta mason. -An echocardiogram is ordered, though I think she will need urgent revaluation of chest pain by interventional team. Cardiology consult is ordered. Her chest pain responds to 1 inch of nitro paste and 4 mg of IV morphine, and these can be continued when she is admitted to the floor. At this time, the patient is pain free with no EKG changes and is stable to be admitted to the floor. If any chest pain, there is a low threshold to transition to the ICU. Given her elevated troponins, troponins will be trended and the patient to be placed on telemetry. 2. Pulmonary embolism. The patient reports she is up-to-date on her routine cancer screening. She reports no recent travel, it is presumed unprovoked. The patient is currently being anticoagulated on a heparin drip while we continue to work up her chest pain. 3. Hyponatremia. This is mild. She is status post 1 L in the emergency room. We will recheck in the morning. 4. Chronic kidney disease. The patient remains at her stable creatinine. 5. Coronary artery disease. The patient does have a history of distant PCI. She is optimized at home on aspirin and statin, not on beta mason. 6. Insulin dependent diabetes. A1c is pending. Home medication is Lantus 25 units and lispro 10 units with meals. She has had very poor p.o. intake since the onset of the chest pain. We will restart the Lantus 10 units and sliding scale insulin and can increase as needed with [id number] glucose. 7. Gastroesophageal reflux disease. Initially, the patient reported that her early chest pain was postprandial and GERD like. We will continue famotidine and also add PPI at this time. Of note, she did have a GI cocktail in the emergency room that did not help her pain that brought her into the emergency room. 8. Hypertension. Continue losartan at 100 mg, home dose of 200 mg; amlodipine ; chlorthalidone; and I have added the low dose beta mason. 9. Hypothyroid. Continue meds. 10. Osteoporosis. Hold alendronate. 11. Essential tremor. The patient reports she is at her baseline. 12. DVT prophylaxis: The patient is on a heparin drip. 13. Diet is n.p.o. after midnight in the event chest pain worsens or there are dynamic EKG changes, requiring urgent catheterization. 14. Code status: DNR/DNI, and MOLST form is completed with her son present. 15. Disposition: The patient is stable to be admitted to [address] [place] [address] with caveats as per above. TIME SPENT: Sixty-five minutes was spent on planning this admission with over half of that spent directly at the bedside with the patient to provide direct patient care. Plan of care is discussed with the patient and her son, who have no further questions. [id number]/[facility] #: [id number] KONG
[2019-04-23] MEDS ORDERED: Ondansetron INJ* 2 MG/ML VIAL IV PRN (23:02)
[2019-04-23] MEDS: Insulin LISPRO* 1 UNITS UNIT SUBCUT SCH (23:22)
[2019-04-23] MEDS ORDERED: Insulin LISPRO* 1 UNITS UNIT SUBCUT ONE (23:30)
[2019-04-23 23:53] LABS: Troponin I 0.89 ng/mL (<0.03)
[2019-04-24] MEDS ORDERED: Morphine INJ* 2 MG/ML 1 ML SYRINGE (TWO MG - NEW SYRINGE VERSION) IV ONE (00:30)
[2019-04-24 04:00] LABS: Troponin I 2.08 ng/mL (<0.03)
[2019-04-24] MEDS ORDERED: Ondansetron INJ* 2 MG/ML VIAL IV PRN (04:50)
[2019-04-24] MEDS: Morphine INJ* 4 MG/ML 1 ML SYRINGE (NEW SYRINGE VERSION) IV PRN (05:08)
[2019-04-24] MEDS: Nitro 2% OINT* (Nitroglycerin) 1 INCH/PAK PAK TOPICAL SCH ×2 (05:27→13:32)
[2019-04-24] MEDS ORDERED: Levothyroxine TAB* 100 MCG TAB PO SCH (06:00)
[2019-04-24 06:27] LABS: ABS Lymphocytes 1.3 10^3/ul (1.0-4.8); ABS Monocytes 0.3 10^3/ul (0-0.8); ABS Neutrophils 6.2 10^3/ul (1.5-7.7); Hematocrit 37 % (35-47); Hemoglobin 12.8 g/dL (12.0-16.0); Lymphocyte % 16.4 %; Mean Corpuscular HGB Conc 34 g/dL (31-36); Mean Corpuscular Hemoglobin 33 pg (27-31); Mean Corpuscular Volume 97 fL (80-97); Mean Platelet Volume 8.3 fL (7.4-10.4); Platelet Count 208 10^3/uL (150-450); Red Blood Count 3.86 10^6 /uL (3.70-4.87); Red Cell Distribution Width 13 % (10-15); White Blood Count 7.9 10^3/uL (3.5-10.8)
[2019-04-24 06:42] LABS: Anion Gap 13 mmol/L (2-11); Blood Urea Nitrogen 21 mg/dL (6-24); CO2 Carbon Dioxide 23 mmol/L (22-32); Calcium 8.6 mg/dL (8.6-10.3); Chloride 96 mmol/L (101-111); EGFR African American 64.1 (>60); Glucose 261 mg/dL (70-100); Potassium 3.5 mmol/L (3.5-5.0); Sodium 132 mmol/L (135-145)
[2019-04-24 07:16] LABS: Troponin I 3.07 ng/mL (<0.03)
[2019-04-24] MEDS ORDERED: KCL 20 MEQ/100 ML IVPREMIX* 20 MEQ/100 ML BAG IV SCH (08:00)
[2019-04-24] MEDS: Insulin LISPRO* 1 UNITS UNIT SUBCUT SCH ×3 (08:42→16:34)
[2019-04-24] MEDS: Famotidine TAB* 20 MG PO SCH (08:42)
[2019-04-24] MEDS: Pantoprazole TAB * 40 MG TAB PO SCH (08:43)
[2019-04-24] MEDS ORDERED: Chlorthalidone TAB* 50 MG PO SCH (09:00)
[2019-04-24] MEDS ORDERED: amLODIPine TAB* 5 MG PO SCH (09:00)
[2019-04-24] MEDS ORDERED: Ascorbic Acid TAB* 500 MG PO SCH (09:00)
[2019-04-24] MEDS ORDERED: Pneumococcal *Vac Polyvalent 0.5 ML VIAL IM ONE (09:00)
[2019-04-24] MEDS ORDERED: Losartan TAB* 25 MG PO SCH (09:00)
[2019-04-24] MEDS ORDERED: Perflutren Lipid Microsphere* 3 ML VIAL ONE (09:16)
[2019-04-24 10:43] LABS: Troponin I 2.34 ng/mL (<0.03)
[2019-04-24] MEDS: Metoprolol Tartrate TAB* 25 MG PO SCH (11:13)
--- NOTE | 2019-04-24 11:21 | PN ---
<Teresa Kaminski - Last Filed: 04/24/19 11:16> Subjective Date of Service: 04/24/19 - Troponin elevation, PE Interval History: Patient states complaints of chest pain radiating to bilateral upper extremities and right jaw resolved in the past 6 hours. She adds her breathing has improved. She just had her venous duplex completed. She offers no further complaints at this time. She states historically she is sedentary due to prior back injuries. Medications Active Medications: Acetaminophen (Tylenol Tab*) 650 mg PO Q6H PRN PRN Reason: PAIN - MILD Last Admin: 04/23/19 22:36 Dose: 650 mg Amlodipine Besylate (Norvasc Tab*) 10 mg PO QAM [facility] Last Admin: 04/24/19 11:10 Dose: 10 mg Ascorbic Acid (Vitamin C Tab*) 500 mg PO QAM [facility] Aspirin (Aspirin Tab*) 325 mg PO QPM [facility] Chlorthalidone (Hygroton Tab*) 25 mg PO QAM [facility] Dextrose (D50w Syringe 50 Ml*) 12.5 gm IV PUSH .FOR FS < 60 - SS PRN PRN Reason: FS < 60 Famotidine (Pepcid Tab*) 40 mg PO BID [facility] Last Admin: 04/24/19 08:42 Dose: 40 mg Heparin Sodium (Porcine) (Heparin Vial(*)) 0 units IV .PER PROTOCOL [facility] Last Admin: 04/23/19 18:19 Dose: 5,400 units Heparin Sodium/Dextrose (Heparin Drip 25,000 Units(*)) 25,000 units in 500 mls @ 0 mls/hr IV PER RATE [facility]; Protocol Last Admin: 04/23/19 18:25 Dose: 26 mls/hr Insulin Glargine (Lantus(*)) 10 units SUBCUT Q24H [facility] Insulin Human Lispro (Humalog*) 0 units SUBCUT ACHS [facility]; Protocol Last Admin: 04/24/19 08:42 Dose: 12 units Levothyroxine Sodium (Synthroid Tab*) 100 mcg PO QAM@0600 [facility] Last Admin: 04/24/19 05:21 Dose: Not Given Losartan Potassium (Cozaar Tab*) 100 mg PO DAILY [facility] Last Admin: 04/24/19 11:10 Dose: 100 mg Metoprolol Tartrate (Lopressor Tab*) 6.25 mg PO Q12HR [facility] Last Admin: 04/23/19 22:19 Dose: 6.25 mg Morphine Sulfate (Morphine Inj (Syringe)*) 4 mg IV Q4H PRN PRN Reason: PAIN - SEVERE Last Admin: 04/24/19 05:08 Dose: 4 mg Nitroglycerin (Nitroglycerin 2% Oint*) 1 inch TOPICAL 0800,1400 [facility]; Protocol Last Admin: 04/24/19 05:27 Dose: 1 inch Ondansetron HCl (Zofran Inj*) 4 mg IV Q4H PRN PRN Reason: NAUSEA Last Admin: 04/24/19 05:09 Dose: 4 mg Pantoprazole Sodium (Protonix Tab*) 40 mg PO BID [facility] Last Admin: 04/24/19 08:43 Dose: 40 mg Pharmacy Profile Note (Nitro Patch/Oint Remove*) 1 note TOPICAL 1400,2000 [facility] Objective Vital Signs: Temp Pulse Resp BP Pulse Ox 97.4 F 70 17 127/50 97 04/24/19 07:09 04/24/19 07:09 04/24/19 07:09 04/24/19 07:09 04/24/19 07:09 Oxygen Devices in Use Now: Nasal Cannula Appearance: standing pivoting to a higher position on bed upon entering room, NAD, A+ O x3 appears somewhat frail Eyes: No Scleral Icterus, PERRLA Ears/Nose/Mouth/Throat: NL Teeth, Lips, Gums, Mucous Membranes Moist Neck: Trachea Midline Respiratory: Symmetrical Chest Expansion and Respiratory Effort, Clear to Auscultation Cardiovascular: NL Sounds; No Murmurs; No JVD, No Edema, - - + Right carotid bruit. Skin: No Rash or Ulcers Neurological: Alert and Oriented x 3 Lines/Tubes/Other Access: Clean, Dry and Intact Peripheral IV Laboratory Results: 04/24/19 06:04 04/24/19 06:04 INR (Anticoag Therapy) 1.03 (0.82-1.09) 04/23/19 18:53 APTT 84.2 seconds (26.0-38.0) H 04/24/19 06:04 Total Bilirubin 0.40 mg/dL (0.2-1.0) 04/23/19 16:15 AST 17 U/L (13-39) 04/23/19 16:15 ALT 16 U/L (7-52) 04/23/19 16:15 Alkaline Phosphatase 64 U/L (34-104) 04/23/19 16:15 Total Protein 7.8 g/dL (6.4-8.9) 04/23/19 16:15 Albumin 4.5 g/dL (3.2-5.2) 04/23/19 16:15 Globulin 3.3 g/dL (2-4) 04/23/19 16:15 Albumin/Globulin Ratio 1.4 (1-3) 04/23/19 16:15 Triglycerides 104 mg/dL 04/23/19 16:15 Cholesterol 156 mg/dL 04/23/19 16:15 LDL Cholesterol 84 mg/dL 04/23/19 16:15 HDL Cholesterol 51.0 mg/dL 04/23/19 16:15 04/23/19 04/23/19 04/23/19 16:15 18:56 22:09 Troponin I 0.32 H* 0.44 H* 0.89 H* 04/24/19 04/24/19 04/24/19 02:53 06:04 09:53 Troponin I 2.08 H* 3.07 H* 2.34 H* Laboratory Results - last 24 hr 04/23/19 04/23/19 04/23/19 16:15 16:15 16:15 WBC 9.4 RBC 4.16 Hgb 14.3 Hct 40 MCV 95 MCH 34 H MCHC 36 RDW 13 Plt Count 240 MPV 7.7 Neut % (Auto) 74.2 Lymph % (Auto) 17.2 [place] % (Auto) 7.4 Eos % (Auto) 0.7 Baso % (Auto) 0.5 Absolute Neuts (auto) 7.0 Absolute Lymphs (auto) 1.6 Absolute Monos (auto) 0.7 Absolute Eos (auto) 0.1 Absolute Basos (auto) 0.0 Absolute Nucleated RBC 0.0 Nucleated RBC % 0.0 INR (Anticoag Therapy) APTT Sodium 132 L Potassium 3.5 Chloride 94 L Carbon Dioxide 28 Anion Gap 10 BUN 24 Creatinine 1.17 H Est GFR ( Amer) 53.5 Est GFR (Non-Af Amer) 44.2 BUN/Creatinine Ratio 20.5 H Glucose 123 H POC Glucose (mg/dL) Hemoglobin A1c Lactic Acid 2.0 Calcium 9.8 Total Bilirubin 0.40 AST 17 ALT 16 Alkaline Phosphatase 64 Troponin I 0.32 H* Total Protein 7.8 Albumin 4.5 Globulin 3.3 Albumin/Globulin Ratio 1.4 Triglycerides 104 Cholesterol 156 LDL Cholesterol 84 HDL Cholesterol 51.0 Lipase 30 04/23/19 04/23/19 04/23/19 16:15 18:53 18:56 WBC RBC Hgb Hct MCV MCH MCHC RDW Plt Count MPV Neut % (Auto) Lymph % (Auto) [place] % (Auto) Eos % (Auto) Baso % (Auto) Absolute Neuts (auto) Absolute Lymphs (auto) Absolute Monos (auto) Absolute Eos (auto) Absolute Basos (auto) Absolute Nucleated RBC Nucleated RBC % INR (Anticoag Therapy) 1.03 APTT 29.7 Sodium Potassium Chloride Carbon Dioxide Anion Gap BUN Creatinine Est GFR ( Amer) Est GFR (Non-Af Amer) BUN/Creatinine Ratio Glucose POC Glucose (mg/dL) Hemoglobin A1c 7.7 H Lactic Acid Calcium Total Bilirubin AST ALT Alkaline Phosphatase Troponin I 0.44 H* Total Protein Albumin Globulin Albumin/Globulin Ratio Triglycerides Cholesterol LDL Cholesterol HDL Cholesterol Lipase 04/23/19 04/23/19 04/24/19 22:09 22:45 00:23 WBC RBC Hgb Hct MCV MCH MCHC RDW Plt Count MPV Neut % (Auto) Lymph % (Auto) [place] % (Auto) Eos % (Auto) Baso % (Auto) Absolute Neuts (auto) Absolute Lymphs (auto) Absolute Monos (auto) Absolute Eos (auto) Absolute Basos (auto) Absolute Nucleated RBC Nucleated RBC % INR (Anticoag Therapy) APTT >240.0 H* Sodium Potassium Chloride Carbon Dioxide Anion Gap BUN Creatinine Est GFR ( Amer) Est GFR (Non-Af Amer) BUN/Creatinine Ratio Glucose POC Glucose (mg/dL) 290 H Hemoglobin A1c Lactic Acid Calcium Total Bilirubin AST ALT Alkaline Phosphatase Troponin I 0.89 H* Total Protein Albumin Globulin Albumin/Globulin Ratio Triglycerides Cholesterol LDL Cholesterol HDL Cholesterol Lipase 04/24/19 04/24/19 04/24/19 02:53 02:53 06:04 WBC RBC Hgb Hct MCV MCH MCHC RDW Plt Count MPV Neut % (Auto) Lymph % (Auto) [place] % (Auto) Eos % (Auto) Baso % (Auto) Absolute Neuts (auto) Absolute Lymphs (auto) Absolute Monos (auto) Absolute Eos (auto) Absolute Basos (auto) Absolute Nucleated RBC Nucleated RBC % INR (Anticoag Therapy) APTT >240.0 H* Sodium 132 L Potassium 3.5 Chloride 96 L Carbon Dioxide 23 Anion Gap 13 H BUN 21 Creatinine 1.00 H Est GFR ( Amer) 64.1 Est GFR (Non-Af Amer) 53.0 BUN/Creatinine Ratio 21.0 H Glucose 261 H POC Glucose (mg/dL) Hemoglobin A1c Lactic Acid Calcium 8.6 Total Bilirubin AST ALT Alkaline Phosphatase Troponin I 2.08 H* 3.07 H* Total Protein Albumin Globulin Albumin/Globulin Ratio Triglycerides Cholesterol LDL Cholesterol HDL Cholesterol Lipase 04/24/19 04/24/19 04/24/19 06:04 06:04 07:47 WBC 7.9 RBC 3.86 Hgb 12.8 Hct 37 MCV 97 MCH 33 H MCHC 34 RDW 13 Plt Count 208 MPV 8.3 Neut % (Auto) 79.0 Lymph % (Auto) 16.4 [place] % (Auto) 4.2 Eos % (Auto) 0.0 Baso % (Auto) 0.4 Absolute Neuts (auto) 6.2 Absolute Lymphs (auto) 1.3 Absolute Monos (auto) 0.3 Absolute Eos (auto) 0.0 Absolute Basos (auto) 0.0 Absolute Nucleated RBC 0.0 Nucleated RBC % 0.0 INR (Anticoag Therapy) APTT 84.2 H Sodium Potassium Chloride Carbon Dioxide Anion Gap BUN Creatinine Est GFR ( Amer) Est GFR (Non-Af Amer) BUN/Creatinine Ratio Glucose POC Glucose (mg/dL) 307 H Hemoglobin A1c Lactic Acid Calcium Total Bilirubin AST ALT Alkaline Phosphatase Troponin I Total Protein Albumin Globulin Albumin/Globulin Ratio Triglycerides Cholesterol LDL Cholesterol HDL Cholesterol Lipase 04/24/19 09:53 WBC RBC Hgb Hct MCV MCH MCHC RDW Plt Count MPV Neut % (Auto) Lymph % (Auto) [place] % (Auto) Eos % (Auto) Baso % (Auto) Absolute Neuts (auto) Absolute Lymphs (auto) Absolute Monos (auto) Absolute Eos (auto) Absolute Basos (auto) Absolute Nucleated RBC Nucleated RBC % INR (Anticoag Therapy) APTT Sodium Potassium Chloride Carbon Dioxide Anion Gap BUN Creatinine Est GFR ( Amer) Est GFR (Non-Af Amer) BUN/Creatinine Ratio Glucose POC Glucose (mg/dL) Hemoglobin A1c Lactic Acid Calcium Total Bilirubin AST ALT Alkaline Phosphatase Troponin I 2.34 H* Total Protein Albumin Globulin Albumin/Globulin Ratio Triglycerides Cholesterol LDL Cholesterol HDL Cholesterol Lipase Diagnostic Imaging: Patient Name: ARIELLE BIRD Medical Record#: [id number] Ordering Physician: Maicol Hi DO Acct.#: [id number] : 1935 Age: 83 Sex: F Location: EMERGENCY DEPARTMENT Exam Date: 04/23/191653 ADM Status: REG ER Order Information: CTA CHEST Accession Number: [id number] CPT: 57001 INDICATION: Chest pain with back and shoulder radiation COMPARISON: None TECHNIQUE: Axial source images were acquired following the administration of 100 mL Visipaque [address] angiographic technique. Coronal and sagittal reconstructed images were constructed and reviewed. FINDINGS: There are partially occlusive thrombi at the right upper lobe pulmonary artery ( series 2 image 49). There are smaller filling defects in the segmental branches of the right upper lobe pulmonary artery. There is a small thrombus at the left upper lobe pulmonary artery (axial image 40). There is a questionable filling defect in a segmental branch of the left lower lobe pulmonary arteries (image 47). There are hypoventilatory changes at the dependent lungs bilaterally. Otherwise there are no focal infiltrates or effusions. There are no pulmonary parenchymal masses. The heart is normal in size. There is no evidence of pericardial effusion. There is no evidence of aortic aneurysm or dissection. 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 There is no mediastinal, hilar, or axillary lymphadenopathy. Degenerative changes of the thoracic spine includes loss of intervertebral disc height and multilevel vacuum disc phenomenon there is an age-indeterminate compression deformity of the L1 vertebral body. Limited views of the upper abdomen show no abnormalities. IMPRESSION: 1. Positive multifocal pulmonary emboli, the largest a nearly occlusive thrombus at the right upper lobe pulmonary artery. These imaging findings were reviewed in person and discussed with Dr. Lutz at 1730 hours on April 23, 2019. 2. 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 3. Additional chronic and degenerative changes described in the body the report. <Electronically signed by Mich Zelaya MD in OV> 04/23/19 1750 Dictated By: Mich Zelaya MD Dictated Date/Time: 04/23/191735 Transcribed Date/Time: 04/23/191735 This report is only to be considered final once signed by the Provider(s) as displayed in the "<Electronically Signed by >" field (s). Absence of a signature indicates the report is in a draft status and still needs to be finalized. In the event this document was created by someone other than the signing Provider, the individual initiating the document will be listed in the "Entered by:" or "Dictated by:" billings. 1 of 2 EKG Data: 04/23/2019; Sinus rhythm rate [address] changes appreciated. Telemetry; Sinus rhythm rate 70-80's occasional PVCs. No VT/VF Assessment/Plan #1 PE; likely related to inactive lifestyle which is the result of multiple back injuries. She has + troponin elevation ( T peaked at 3.07). Her symptomatology was atypical for PE ( post prandial chest pain radiating into bilateral upper extremities and right jaw, Dyspnea). LV was normal on today's echo per Dr. Reich. Although there was no RV strain she does have troponin elevation which is c/w RV strain. She is to have lower extremity duplex to r/o proximal DVT. It may be reasonable to involve pulmonolgy to determine if patient qualifies for catheter assisted lytic therapy. on IV heparin. #2 Troponin elevation; felt to be related to above #1. No acute ECG changes appreciated. Wall motion and LV function normal on preliminary echo read per Dr. Reich. T peaked at 3.07. #3 h/o CAD with remote intervention in 2005 at [facility]; records requested. On ASA, bblocker and statin therapy. symptoms concerning for ACS however diagnostic data not c/w with ACS( no acute ST changes on ECG, normal wall motion) in addition patient has a large PE. Images reviewed this morning with radiologist. #4 + Right carotid bruit with known aberrant right subclavian artery. Would benefit from eventual carotid duplex. #5 Disposition pending course. Await duplex results. continue IV heparin. Consider pulmonology evaluation. Attending: Sammie Reich <Sammie Reich - Last Filed: 04/24/19 20:15> Objective Vital Signs: Temp Pulse Resp BP Pulse Ox 98.1 F 65 18 127/58 100 04/24/19 15:15 04/24/19 15:15 04/24/19 15:15 04/24/19 15:15 04/24/19 15:15 Laboratory Results: 04/24/19 06:04 04/24/19 06:04 INR (Anticoag Therapy) 1.03 (0.82-1.09) 04/23/19 18:53 APTT 84.2 seconds (26.0-38.0) H 04/24/19 06:04 Total Bilirubin 0.40 mg/dL (0.2-1.0) 04/23/19 16:15 AST 17 U/L (13-39) 04/23/19 16:15 ALT 16 U/L (7-52) 04/23/19 16:15 Alkaline Phosphatase 64 U/L (34-104) 04/23/19 16:15 B-Natriuretic Peptide 195 pg/mL (<=100) H 04/24/19 06:04 Total Protein 7.8 g/dL (6.4-8.9) 04/23/19 16:15 Albumin 4.5 g/dL (3.2-5.2) 04/23/19 16:15 Globulin 3.3 g/dL (2-4) 04/23/19 16:15 Albumin/Globulin Ratio 1.4 (1-3) 04/23/19 16:15 Triglycerides 104 mg/dL 04/23/19 16:15 Cholesterol 156 mg/dL 04/23/19 16:15 LDL Cholesterol 84 mg/dL 04/23/19 16:15 HDL Cholesterol 51.0 mg/dL 04/23/19 16:15 04/23/19 04/23/19 04/23/19 16:15 18:56 22:09 Troponin I 0.32 H* 0.44 H* 0.89 H* 04/24/19 04/24/19 04/24/19 02:53 06:04 09:53 Troponin I 2.08 H* 3.07 H* 2.34 H* 04/24/19 14:45 Troponin I 4.28 H* Assessment/Plan I saw the patient personally. Hx CP with meals. Very sedentary lifestyle, very overweight CT reviewed with radiology. Echo as above, no LV wall motion abnormalities and RV shows good function. I agree that with significant PE's rise in trops most likely related to RV strain. CP is atypical for both PE and CAD. As known CAD with distant stent agree as above with medical management of CAD risks. Agree with the above.
[2019-04-24] MEDS ORDERED: Nitro Patch/OINT Remove TOPICAL SCH (11:30)
--- NOTE | 2019-04-24 13:27 | ECHO ---
*[facility]* [place] [address] Fax #: [phone] Transthoracic Echocardiogram Patient: Christiane Cárdenas : 1935 Study Date: 04/24/2019 Age: 83 Gender: F HR: 75 bpm Height: 65 in /165.1 cm BSA: 2.02 m^2 Weight: 209.6 lb /95.3 kg BMI: 34.9 kg/m^2 *Electrical High Tension Tester: * Heavenly Wilkinson *Referring Physician: * [place]at UpReading Physician: * Sammie Reich MD Indications: Chest Pain, unspecified. History: Coronary artery disease. Risk factors: Hypertension. Diabetes mellitus. Dyslipidemia. Conclusions Summary: - Left ventricle: Systolic function is normal. The estimated ejection fraction is 55-60%. Wall motion is normal; there are no regional wall motion abnormalities. - Right ventricle: Systolic function is normal. - Tricuspid valve: There is moderate regurgitation. - Pulmonary arteries: Systolic pressure is moderately increased, estimated to be 48 mm Hg. - No prior echocardiogram to compare is available. Study data: Transthoracic echocardiogram. Procedure: Transthoracic echocardiography was performed. Image quality was suboptimal. Intravenous Definity , 2 mlswas administered. Complete 2D, spectral Doppler, and color flow Doppler. Location: Bedside. Patient status: Inpatient. Patient room number: 444-01. Rhythm: Normal sinus rhythm. Findings Left ventricle: The cavity size is normal. Wall thickness is normal. Systolic function is normal. The estimated ejection fraction is 55-60%. Wall motion is normal; there are no regional wall motion abnormalities. Left ventricular diastolic function parameters are normal. Right ventricle: The cavity size is normal. Systolic function is normal. Ventricular septum: The ventricular septum is normal. Left atrium: The atrium is normal in size. Right atrium: The atrium is normal in size. Atrial septum: No defect or patent foramen ovale is identified. Mitral valve: The valve is structurally normal. There is no evidence of stenosis. There is mild regurgitation. Aortic valve: The valve is trileaflet. The leaflets are mildly thickened. Cusp separation is normal. There is no evidence of stenosis. There is no significant regurgitation. Tricuspid valve: The valve is structurally normal. There is no evidence of stenosis. There is moderate regurgitation. Pulmonic valve: There is trace regurgitation. Aorta: The aortic root appears normal. The aortic arch appears normal. Pulmonary arteries: Systolic pressure is moderately increased, estimated to be 48 mm Hg. Systemic veins: Inferior vena cava: Not well visualized. Pulmonary veins: The Pulmonary veins appear normal. Measurements Left ventricle Value Ref Aortic valve Value Ref AMBER, LAX 4.0 cm 3.8 - Peak v, S 1.79 m/sec ----- 5.2 VTI, S 43.2 cm ----- PW, ED, LAX (H) 1.0 cm 0.6 - Mean grad, S 7.0 mm Hg ----- 0.9 Peak grad, S 13.0 mm Hg ----- PW, ED (H) 1.0 cm 0.6 - NESTOR, VTI 2.54 cm^2 ----- 0.9 NESTOR, Vmax 2.11 cm^2 ----- PW/ID, ED 0.24 -------- E', lat seth, TDI (L) 9.3 cm/sec >=10.0 Mitral valve Value Re f E/e', lat seth, TDI 10 -------- Peak E 0.9 m/sec ----- E', med seth, TDI (L) 6.3 cm/sec >=7.0 Peak A 1.02 m/sec -- --- E/e', med seth, TDI 14 -------- Decel time 290 ms ----- E', avg, TDI 7.8 cm/sec -------- Peak grad, D 3.3 mm Hg ----- E/e', avg, TDI 12 <=14 Peak E/A ratio 0.9 -- --- LVOT Value Ref Pulmonic valve Value Ref Diam, S 2.00 cm -------- Peak v, S 0.63 m/sec ----- Area 3.1 cm^2 -------- Peak grad, S 2.0 mm Hg ----- Peak jose, S 1.2 m/sec -------- Peak grad, S 6 mm Hg -------- Tricuspid valve Value Ref Mean grad, S 3 mm Hg -------- TR peak v (H) 3.06 m/sec <=2.8 SV 110 ml -------- Peak RV-RA grad, S 37 mm Hg ----- Max TR jose 3.27 m/sec ----- Ventricular septum Value Ref IVS, ED (H) 1.1 cm 0.6 - Aortic root Value Ref 0.9 Root diam 3.1 cm <4.2 Right ventricle Value Ref Ascending aorta Value Ref AMBER, LAX 2.7 cm -------- AAo AP diam, S 2.9 cm ----- AMBER minor ax, A4C 3.5 cm 1.9 - mid 3.5 Aortic arch Value Ref Arch diam 1.7 cm ----- Left atrium Value Ref ML dim, A4C 4.2 cm -------- Decending aorta Value Ref SI dim, A4C 6.3 cm -------- Tatianna peak jose 0.62 m/sec ----- Vol/bsa, ES, 1-p 28 ml/m^2 11 - 40 A4C Vol/bsa, ES, A/L 31 ml/m^2 16 - 34 Right atrium Value Ref SI dim, ES 4.6 cm 3.4 - 5.3 ML dim, ES, A4C (H) 4.5 cm 2.6 - 4.4 SI dim, ES, A4C 4.6 cm 3.4 - 5.3 Legend: (L) and (H) adrian values outside specified reference range. Prepared and electronically signed by Sammie Reich MD 04/24/2019 13:27
[2019-04-24] MEDS ORDERED: Nitroglycerin TAB 0.4 MG* 0.4 MG TAB SL PRN (14:48)
--- NOTE | 2019-04-24 14:49 | PN ---
Hospitalist Progress Note Date of Service: 04/24/19 See Transfer summary for d/c In consultation with cardiology, pulmonology, pts chest pain thought to b 2/2 to submassive PE and that she would benefit form evaluation for [facility]OS. Arragnement made with family and Dr. Lundberg accepting
[2019-04-24 15:14] LABS: Troponin I 4.28 ng/mL (<0.03)
[2019-04-24 15:30] LABS: Magnesium 1.9 mg/dL (1.9-2.7)
[2019-04-24 15:39] VITALS: BP 127/58
[2019-04-24] MEDS ORDERED: Enoxaparin(*) 100 MG/ML SYR SUBCUT SCH (16:00)
--- NOTE | 2019-04-24 16:53 | DS ---
TRANSFER SUMMARY: DATE OF ADMISSION: 04/23/19 DATE OF TRANSFER: 04/24/19 DISPOSITION AT TIME OF DISCHARGE: Stable to be discharged to [facility] for evaluation for possible catheter directed lytic for submassive PE. PRIMARY DIAGNOSES: 1. Submassive pulmonary embolism. 2. Chest pain. SECONDARY DIAGNOSES: 1. Coronary artery disease status post distant percutaneous coronary intervention. 2. Insulin-dependent diabetes, well controlled. 3. Recently diagnosed new pulmonary embolism and deep vein thrombosis, likely provoked secondary to sedentary lifestyle. 4. Hypothyroidism. 5. Chronic low back pain. 6. Osteoporosis. 7. Hypertension. 8. Hyperlipidemia. 9. Gastroesophageal reflux disease. 10. Essential tremor. MEDICATIONS AT TIME OF DISCHARGE: 1. Acetaminophen 650 mg p.o. q.6 hours p.r.n. 2. Amlodipine 10 mg p.o. q.a.m. 3. Ascorbic acid 500 mg p.o. q.a.m. 4. Aspirin 81 mg p.o. q.p.m. 5. Atorvastatin 80 mg p.o. daily. 6. Chlorthalidone 25 mg p.o. q.a.m. 7. Enoxaparin 90 mg subcutaneous q.12 hours, last dose at 1500. 8. Famotidine 40 mg p.o. b.i.d. 9. Insulin glargine 10 units subcutaneous q.p.m., home dose is 25 units q.p.m. 10. Insulin lispro sliding scale with meals. 11. Levothyroxine 100 mcg p.o. q.a.m. 12. Losartan 100 mg p.o. daily. 13. Metoprolol 6.25 mg p.o. q.12 hours. 14. Morphine 4 mg IV q.4 hours p.r.n. for severe pain. 15. Nitro paste 1 inch topically b.i.d. 16. Nitroglycerin 0.4 mg sublingual every 5 minutes p.r.n. for chest pain. 17. Ondansetron 4 mg IV q.4 hours p.r.n. 18. Pantoprazole 40 mg p.o. b.i.d. Medications changes on this hospitalization: The addition of Lovenox for submassive PE and inability to transfer on a heparin drip for therapeutic anticoagulation in the setting of submassive PE. Addition of metoprolol 6.25 mg and replacement of atorvastatin from her home rosuvastatin and the addition of morphine and nitroglycerin to her home medications, which otherwise her home medications are unchanged with the exception of dose reduction of her glargine, which was 25 units originally and has only been given 10 units here for poor p.o. intake and the dose reduction of losartan from 200 mg to 100 mg daily. HISTORY OF PRESENT ILLNESS AND HOSPITAL COURSE: This is an 83-year-old female with above past medical history who presented with 3 days of intermittent chest pain and 1 day of acute substernal chest pain. The patient reports that she was in her usual state of health until about Monday and she started to have odd postprandial pain that she assumed was GERD, it was mild in nature. Although on 04/23/19, she woke up with severe substernal chest pain that radiated to her jaw and bilateral arms and bilateral shoulder blades. Because her pain was so severe and she was unable to move and it was associated with nausea, she decided to call EMS. She was given nitro, which her pain was mildly responsive to. When she arrived to the emergency room, her vital signs were stable. Her heart rate was sinus in the 80s. She had mild ST changes with [address] elevation in V6. She did not have any other acute findings. Her initial troponin was 0.44. Because the pain that she described was concerning for PE or dissection, a CTA was performed, which showed no dissection, but did show right upper lobe large pulmonary embolus with almost fully occluded right upper lobe pulmonary artery. Echocardiogram was done in the emergency room, which showed no regional wall motion abnormalities and no evidence of RV strain on a limited view. The ceramics technician requested that the patient be treated for pulmonary embolism and they would continue to monitor her for possible NSTEMI over the course of the evening. Her hospital course by problem is as follows: 1. Elevated troponin. Her troponins raised from 0.44 to 3 on 04/24/19 and prior to discharge had trended back down to 2.34. She had significant rise in troponin and intermittent chest pain that was responsive to nitro and morphine. She was placed on a heparin drip for both therapeutic anticoagulation in the setting of a pulmonary embolism and also initial concern for NSTEMI. Cardiology was consulted who felt that this was no representation of ACS, no regional wall motion abnormalities, and that her pain was more consistent with a submassive pulmonary embolism. Formal echocardiogram was performed and is as per below. Ultimately, the rise in her troponin is thought to be from submassive PE and in consultation with Pulmonology, who looked at her scans, they felt that she may benefit from lytic therapy. Further discussion of pros and cons of the situation was discussed with family at length and it is documented as per below. 2. Submassive pulmonary embolism. The patient has evidence of right upper lobe pulmonary artery embolism and several subsegmental bilateral PEs and a peroneal DVT. She has no evidence of RV strain, but her troponin and consistent rise are concerning for possible prognostic indicator for poor RV function in the future and because of this, our pulmonology team felt that she would benefit from lytic therapy. She has no evidence of massive PE. No hemodynamic compromise and her vital signs have remained stable including her oxygen needs, which are none. 3. Coronary artery disease. The patient does have a history of CAD status post PCI and initially, she was concerned for rule out ACS. Cardiology team felt that she did not represent ACS and she was given aspirin, statin, and beta- mason with appropriate primary and secondary prevention, although as per above , they did not feel this represented ACS. 4. Insulin-dependent diabetes. The patient's A1c is 7.7. She is well controlled on glargine and sliding scale lispro. Her home doses were lowered because of poor intake here. The patient's baseline creatinine is 1. 5. Essential tremor. The patient is at baseline. 6. Hypertension. The patient is on multiple antihypertensives, which are included. Her losartan dose was lowered from 200 to 100. Her blood pressure has been well controlled here. 7. Osteoporosis. Her alendronate was held. 8. Hypothyroidism. Her home meds were continued. 9. Initially thought to have CKD, although we are corrected. She had mild elevation of creatinine from 1.17 and now 1, which is at baseline from outside clinic notes, which arrived today. 10. GERD. The patient is on H2 mason and PPI, which are continued. 11. Time of transfer. A submassive PE and lytic therapy with EKOS procedure is a ribeiro area of medicine and of mixed evidence in terms of long-term improvements of mortality and morbidity in this patient. In theory, she does have potential benefit for diminishing the overall strain to her right heart, although we have explained to the family and the patient that there is a chance that she could be transferred to [facility] and ultimately the decision to not undergo an EKOS procedure could be made and they understand that. Furthermore, if the patient were to decompensate, have worsening pain and elevation in her troponin, we are not a facility that can offer her lytic- assisted therapy and overall, our clinical resource director felt that she would benefit from evaluation from a facility who could. The patient understands that lytic therapy does not help in immediate resolution of pleuritic chest pain nor does the procedure have immediate benefits, but more long-term benefits and diminishing evidence of right heart failure. Her , her son and the patient herself understand these consequences and still feel that they are interested in hearing a second opinion and getting education on whether she is in fact a candidate for this procedure. She has been fully heparinized since she has been here. Her pain is responsive with morphine and nitroglycerin and she is comfortable and pain-free. She was given Lovenox just prior to discharge , therapeutic dosing and Dr. Lundberg and Dr. Ann were contacted from this facility, who both felt that it is reasonable to evaluate the patient within [facility]. GOALS OF CARE: The patient is clear DNR/DNI and this is well documented on her MOLST form, though she would reverse these code orders during a procedural setting. She also understands the procedure would mandate her lying flat and has been educated by our clinical resource director on the pros and cons thoroughly. LABS AND STUDIES DONE DURING THIS HOSPITALIZATION: Labs on day of discharge, white blood cell count 7.9, hemoglobin 12.8, hematocrit 37, and platelets 208. BMP, sodium 132, potassium 3.5, chloride 96, carbon dioxide 23, anion gap 13, BUN 21, creatinine 1, glucose 220. Troponin 3.07 at 4 a.m., 04/24/19 and 2.34 at 8 a.m., 04/24/19. AST 17, ALT 16. Lipase 30. LDL cholesterol is 84. A1c 7.7. Lactic acid is 2. PTT was 84 at 4 a.m. on 04/24/19. Therapeutic dose Lovenox was given at 3 p.m. on 04/24/19. Imaging included CTA of chest, which shows no dissection, multifocal pulmonary emboli with the largest nearly occlusive thrombus at the right upper lobe pulmonary artery. 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 Transthoracic echocardiogram was done on 04/23/19, which showed systolic function is normal with ejection fraction of 55 % to 60% with no regional wall motion abnormalities and a right ventricle showing systolic function, elevated PA pressures at 48. Venous Doppler study showed a thrombus involving one of the paired peroneal veins in the right lower extremity. Carotid Doppler was performed during this hospitalization and the official results are pending at the time of dictation and will be included in the transfer packet. A chest x-ray was performed that shows no acute intrathoracic pathology. EKG was performed numerous times, which showed sinus rhythm with mild ST changes in V6 on presentation and no ST changes or signs of T wave inversion at the rest of her hospitalization. TIME SPENT: Sixty five minutes was spent on the planning of this transfer with over half that spent directly at the bedside with the patient, providing direct patient care and counseling her family, and coordinating care. Plan of care was discussed with our attendings and clinical resource director consultants, Dr. Alida Garrido, Dr. Sammie Reich of Cardiology, Dr. Roddy Lutz of Cardiology, Dr. Tyron Lundberg of Cardiology from [facility], and Dr. Ann, who is a clinical resource director at [facility]. If there are any questions about the care of this patient during this hospitalization, please do not hesitate to reach out and contact me directly, my cell phone is [phone]. [id number]/CPS #: [id number] MTDD
--- NOTE | 2019-04-24 17:02 | CONS ---
PULMONARY CONSULTATION REPORT: DATE OF CONSULT: 04/24/19 CONSULTATION REQUESTED BY: Dr. Montserrat Up and Dr. Adolfo Hayes. REASON FOR CONSULT: Evaluation of pulmonary embolism. HISTORY OF PRESENT ILLNESS: The patient is an 83-year-old female with history of insulin-dependent diabetes; coronary artery disease, status post NV in the past; hypothyroidism; chronic kidney disease, stage 2; osteoporosis; hypertension; dyslipidemia; GERD, presents to the emergency room for evaluation of chest pain on and off for the past 3 days with worsening over the past day. The patient reports intermittent postprandial chest pain that started 4 days ago , mild initially, associated with eating, assumed it to be GERD related and started taking pantoprazole. Pain subsequently got worse and is central in her chest with radiation to the neck, shoulder blades and back. Pain was intense on the day of presentation. The patient denied nausea, vomiting, diaphoresis, or shortness of breath associated with pain. Further evaluation in the emergency room revealed blood pressure of 160/88, heart rate of 82, respiratory rate 17, O2 sat 96% on room air, and she was afebrile. The patient was given nitroglycerin by EMS and aspirin 325 en route. EKG showed mild ST-T wave changes in V6, otherwise with no acute changes. Initial troponin was slightly elevated at 0.2, subsequently had trended up with levels at 3.0. Cardiology was consulted, bedside echo did not reveal right heart strain, did not reveal left ventricular ischemia pattern. She had CTA for further evaluation of possible dissection. I have personally reviewed CTA images and with the patient - evidence of filling defect in the right upper lobe pulmonary artery with near complete occlusion of the right upper lobe pulmonary branch. The patient was subsequently initiated on Lovenox. She is also receiving morphine and nitroglycerin with improvement in pain. Her blood pressure was significantly elevated on presentation likely secondary to the pain. Last blood pressure reading shows systolic pressure of 110 with a diastolic of 50 and a heart rate of 65. She is satting 97% to 98% on room air. The patient denies any other issues currently other than the pain. She reports being anxious. PAST MEDICAL HISTORY: 1. CAD, status post PCI. 2. Insulin-dependent diabetes. 3. Hypothyroidism. 4. CKD, stage 2. 5. Osteoporosis. 6. Hypertension. 7. Dyslipidemia. 8. GERD. 9. Essential tremor. PAST SURGICAL HISTORY: 1. Appendectomy. 2. Cholecystectomy. 3. Left heel surgery. 4. Cataracts. MEDICATIONS: 1. Alendronate. 2. Calcium carbonate. 3. Flaxseed oil. 4. Insulin. 5. Probiotic. 6. Lecithin. 7. Losartan. 8. Meloxicam. 9. Multivitamin. 10. Rosuvastatin. 11. Amlodipine. 12. Ascorbic acid. 13. Aspirin. 14. Chlorthalidone. 15. Famotidine. 16. Levothyroxine. 17. Protonix. ALLERGIES: LATEX, PENICILLINS, RUBBER. FAMILY HISTORY: Father of brain aneurysm. Sister of heart attack. Mother with lung cancer. SOCIAL HISTORY: Retired home health aide. Nonsmoker. No alcohol or drug abuse. REVIEW OF SYSTEMS: All 14 systems reviewed and as per HPI. PHYSICAL EXAM: A slightly anxious, obese female, in no apparent distress. Vital Signs: Temperature 98, pulse 65 beats per minute, respiratory rate 16 per minute, O2 sat 96% to 97% on room air, blood pressure 110/50. HEENT: Pupils equal, reactive to light. Mucous membranes moist. Lungs: Good air entry bilaterally with no crackles or wheezes. Cardiovascular: S1, S2 present , regular. Abdomen: Obese, nontender, nondistended. Bowel sounds present. Extremities: Normal range of motion. Skin: No rash or bruises. DIAGNOSTIC STUDIES/LAB DATA: WBC count 7.9, hemoglobin 12.8, hematocrit 37, platelet count 208. Last PTT at 6 a.m. is 84. Sodium 132, potassium 3.5, chloride 96, bicarb 23, BUN 21, creatinine 1.0. Troponin highest value of 3.07, trending down to 2.34. BNP elevated at 195. CT as described above in HPI. IMPRESSION AND RECOMMENDATIONS: 83-year-old female with pulmonary embolism with almost near complete occlusion of right upper lobe pulmonary artery, also with elevated troponins indicative of right heart strain. Echocardiogram did not demonstrate any evidence of right heart strain. She is also hemodynamically stable and given that this is submassive pulmonary embolism and that the patient is hemodynamically stable, no indication for thrombolytics at this time. However, given evidence of elevated troponins indicative of myocardial ischemia, she needs close monitoring and might need an intervention like catheter-directed thrombolysis if her condition continues to deteriorate. She at least needs to be watched closely while anticoagulation is being continued to monitor for any deterioration and immediate need for intervention. I would recommend that she would be transferred to the facility with capabilities for catheter-assisted thrombolysis. Catheter-associated thrombolysis is indicated over systemic thrombolytic therapy in submassive pulmonary embolism given low risk for complications and lower dose of tPA can be used. Long-term benefit of catheter-assisted intervention is shown in multiple studies. Continue with anticoagulation. Monitor PTT closely. I have discussed above recommendations with Dr. Montserrat Up, who is facilitating transfer of the patient to a facility with the capability. The patient's son was also informed of the decision and he is agreeable. I have also had extensive discussion with the patient and explained her the rationale behind the transfer. Thank you for allowing me to participate in the care of the patient. Will follow up with you. [id number]/CPS #: [id number] KONG
[2019-04-24] MEDS ORDERED: Aspirin 81 mg CHEW TAB* 81 MG TAB.CHEW PO SCH (18:00)
[2019-04-24] MEDS ORDERED: Aspirin TAB* 325 MG PO SCH (18:00)
[2019-04-24] MEDS ORDERED: Insulin GLARGINE(*) 1 UNITS UNIT SUBCUT SCH (21:00)
== END 2019-04-24 16:50 | disposition short-term general hospital (02) | DRG 176 ==
LOC: ED 15:35 → MEDTELE 18:50
PROVIDERS: ADMIT Internal Medicine; ATTEND Internal Medicine
PROC: B24BZZZ Ultrasonography of Heart with Aorta (ICD-10-PCS; principal; 2019-04-24)
DX: I26.94 Multiple subsegmental thrombotic pulmonary emboli without acute cor pulmonale (principal); E87.1 Hypo-osmolality and hyponatremia; I82.459 Acute embolism and thrombosis of unspecified peroneal vein; M19.90 Unspecified osteoarthritis, unspecified site; M81.0 Age-related osteoporosis without current pathological fracture; E03.9 Hypothyroidism, unspecified; N18.2 Chronic kidney disease, stage 2 (mild); I12.9 Hypertensive chronic kidney disease with stage 1 through stage 4 chronic kidney disease, or unspecified chronic kidney disease; E11.22 Type 2 diabetes mellitus with diabetic chronic kidney disease; E78.5 Hyperlipidemia, unspecified; K21.9 Gastro-esophageal reflux disease without esophagitis; G89.29 Other chronic pain; M54.5 Low back pain; G25.0 Essential tremor; I25.10 Atherosclerotic heart disease of native coronary artery without angina pectoris; Z66 Do not resuscitate; R79.89 Other specified abnormal findings of blood chemistry; Z98.42 Cataract extraction status, left eye; Z88.0 Allergy status to penicillin; Z91.040 Latex allergy status; Z95.5 Presence of coronary angioplasty implant and graft; Z98.41 Cataract extraction status, right eye; Q27.8 Other specified congenital malformations of peripheral vascular system; Z79.82 Long term (current) use of aspirin; Z79.4 Long term (current) use of insulin; Z79.890 Hormone replacement therapy; Z79.899 Other long term (current) drug therapy
CPT/HCPCS: 36415; 71045; 71275; 80048; 80053; 80061; 83036; 83605; 83690; 83735; 83880; 84484; 85025; 85610; 85730; 87641; 90732; 93005; 93306; 93880; 93970; 96374; 96375; 96376; 99284; A9270-GY; C8929; J1644; J1650; J2270; J2405; J3480; Q9967

== ENCOUNTER 2019-12-02 19:50 | Inpatient (IN) ==
[2019-12-03 00:02] LABS: ABS Basophils 0.1 10^3/ul (0-0.2); ABS Eosinophils 0.1 10^3/ul (0-0.6); ABS Lymphocytes 3.1 10^3/ul (1.0-4.8); ABS Monocytes 0.5 10^3/ul (0-0.8); ABS Neutrophils 2.6 10^3/ul (1.5-7.7); Eosinophil % 1.5 %; Hematocrit 40 % (35-47); Hemoglobin 13.7 g/dL (12.0-16.0); Lymphocyte % 48.1 %; Mean Corpuscular HGB Conc 34 g/dL (31-36); Mean Corpuscular Hemoglobin 34 pg (27-31); Mean Corpuscular Volume 99 fL (80-97); Mean Platelet Volume 7.9 fL (7.4-10.4); Nucleated Red Blood Cells % 0.1; Platelet Count 263 10^3/uL (150-450); Red Blood Count 4.06 10^6 /uL (3.70-4.87); Red Cell Distribution Width 13 % (10-15); White Blood Count 6.4 10^3/uL (3.5-10.8)
[2019-12-03 00:18] LABS: BUN/Creatinine Ratio 17.4 (8-20); Calcium 9.5 mg/dL (8.6-10.3); EGFR African American 70.5 (>60); EGFR Non-African American 58.3 (>60)
[2019-12-03] MEDS ORDERED: Polyethylene Glycol 3350 17 GM PACKET PO PRN (03:41)
[2019-12-03] MEDS ORDERED: Magnesium Hydroxide LIQ 30 ML UDC PO PRN (03:41)
[2019-12-03] MEDS ORDERED: Senna TAB 8.6 mg TAB PO PRN (03:41)
[2019-12-03] MEDS ORDERED: Dextrose 50% Syringe 50 ml 25 GM/50 ML SYRINGE IV PUSH PRN (03:44)
[2019-12-03 03:54] LABS: Urine Appearance Clear; Urine Bilirubin Negative (Negative); Urine Blood Negative (Negative); Urine Color Straw; Urine Glucose 1+(50 mg/dL) (Negative); Urine Ketones Negative (Negative); Urine Nitrite Negative (Negative); Urine Protein Negative (Negative); Urine Specific Gravity 1.009 (1.010-1.030); Urine Urobilinogen Negative (Negative)
[2019-12-03] MEDS: NS 0.9% 1000 ml BAG 1,000 ML IV SCH ×2 (05:07→23:59)
[2019-12-03 06:34] LABS: Activated Partial Thrombo Time 34.2 seconds (26.0-38.0); INR 1.08 (0.82-1.09)
[2019-12-03 16:14] LABS: C Reactive Protein 2.79 mg/L (<8.01)
[2019-12-03] MEDS ORDERED: Gadoteridol (CONTRAST) 279.3 MG/ML 10 ML IV ONE (19:38)
[2019-12-03] MEDS ORDERED: Enoxaparin 30 MG/0.3 ML SYR SUBCUT SCH (20:00)
[2019-12-03] MEDS ORDERED: Insulin GLARGINE 100 un/ml 10 ml VIAL SUBCUT SCH (21:00)
[2019-12-04 11:52] VITALS: BP 131/69
[2019-12-06 00:42] LABS: IgG Immunoblot Negative (Negative); IgM Immunoblot Negative (Negative)
[2019-12-07 13:32] LABS: B garinii/B afzelii PCR Negative (Negative); B mayonii PCR Negative (Negative)
== END 2019-12-04 13:15 | DRG 554 ==
LOC: ED 19:50 → MED 19:50
PROVIDERS: ADMIT Pediatrics; ATTEND Internal Medicine

== ENCOUNTER 2019-12-04 11:40 | Inpatient (IN) ==
[2019-12-04] MEDS ORDERED: Senna TAB 8.6 mg TAB PO PRN (15:44)
[2019-12-04] MEDS ORDERED: Magnesium Hydroxide LIQ 30 ML UDC PO PRN (15:44)
[2019-12-04] MEDS ORDERED: Dextrose 50% Syringe 50 ml 25 GM/50 ML SYRINGE IV PUSH PRN (16:01)
[2019-12-04] MEDS ORDERED: Enoxaparin 30 MG/0.3 ML SYR SUBCUT SCH (21:00)
[2019-12-04] MEDS ORDERED: Insulin GLARGINE 100 un/ml 10 ml VIAL SUBCUT SCH (21:00)
[2019-12-04] MEDS: CMCS: Diclofenac 1% GEL (NF) 100 GM TUBE TOPICAL SCH (21:39)
[2019-12-05] MEDS: HYDROcodone/ACETAMIN 5/325 mg TAB PO PRN (06:42)
[2019-12-05] MEDS: CMCS: Diclofenac 1% GEL (NF) 100 GM TUBE TOPICAL SCH ×3 (09:39→21:23)
[2019-12-05] MEDS: Insulin GLARGINE 100 un/ml 10 ml VIAL SUBCUT SCH (21:24)
[2019-12-06] MEDS: HYDROcodone/ACETAMIN 5/325 mg TAB PO PRN ×3 (00:45→13:51)
[2019-12-06 05:27] LABS: ABS Eosinophils 0.2 10^3/ul (0-0.6); ABS Lymphocytes 2.8 10^3/ul (1.0-4.8); ABS Monocytes 0.5 10^3/ul (0-0.8); ABS Neutrophils 3.7 10^3/ul (1.5-7.7); Eosinophil % 2.5 %; Hematocrit 38 % (35-47); Hemoglobin 13.1 g/dL (12.0-16.0); Mean Corpuscular HGB Conc 35 g/dL (31-36); Mean Corpuscular Hemoglobin 35 pg (27-31); Mean Corpuscular Volume 99 fL (80-97); Mean Platelet Volume 7.4 fL (7.4-10.4); Platelet Count 225 10^3/uL (150-450); Red Blood Count 3.78 10^6 /uL (3.70-4.87); Red Cell Distribution Width 13 % (10-15); White Blood Count 7.2 10^3/uL (3.5-10.8)
[2019-12-06 05:42] LABS: Albumin 3.6 g/dL (3.2-5.2); Albumin/Globulin Ratio 1.2 (1-3); BUN/Creatinine Ratio 26.4 (8-20); Calcium 8.8 mg/dL (8.6-10.3); EGFR African American 75.2 (>60); EGFR Non-African American 62.2 (>60); Globulin 2.9 g/dL (2-4); Potassium 4.3 mmol/L (3.5-5.0); Total Bilirubin 0.4 mg/dL (0.2-1.0); Total Protein 6.5 g/dL (6.4-8.9)
[2019-12-06] MEDS: CMCS: Diclofenac 1% GEL (NF) 100 GM TUBE TOPICAL SCH ×3 (08:40→20:50)
[2019-12-06] MEDS: Insulin GLARGINE 100 un/ml 10 ml VIAL SUBCUT SCH (20:50)
[2019-12-07] MEDS: HYDROcodone/ACETAMIN 5/325 mg TAB PO PRN (04:00)
[2019-12-07] MEDS: CMCS: Diclofenac 1% GEL (NF) 100 GM TUBE TOPICAL SCH ×3 (10:39→21:43)
[2019-12-07] MEDS: Insulin GLARGINE 100 un/ml 10 ml VIAL SUBCUT SCH (21:09)
[2019-12-08] MEDS: HYDROcodone/ACETAMIN 5/325 mg TAB PO PRN (03:54)
[2019-12-08] MEDS: CMCS: Diclofenac 1% GEL (NF) 100 GM TUBE TOPICAL SCH ×4 (08:13→22:55)
[2019-12-08] MEDS: Insulin GLARGINE 100 un/ml 10 ml VIAL SUBCUT SCH (21:43)
[2019-12-09] MEDS: HYDROcodone/ACETAMIN 5/325 mg TAB PO PRN ×2 (02:17→08:30)
[2019-12-09] MEDS: CMCS: Diclofenac 1% GEL (NF) 100 GM TUBE TOPICAL SCH ×3 (08:30→21:36)
[2019-12-09] MEDS: Insulin GLARGINE 100 un/ml 10 ml VIAL SUBCUT SCH (21:34)
[2019-12-10] MEDS: HYDROcodone/ACETAMIN 5/325 mg TAB PO PRN (04:45)
[2019-12-10] MEDS: CMCS: Diclofenac 1% GEL (NF) 100 GM TUBE TOPICAL SCH ×3 (09:13→21:48)
[2019-12-10] MEDS: Insulin GLARGINE 100 un/ml 10 ml VIAL SUBCUT SCH (21:47)
[2019-12-11] MEDS: HYDROcodone/ACETAMIN 5/325 mg TAB PO PRN ×2 (07:21→11:32)
[2019-12-11] MEDS: CMCS: Diclofenac 1% GEL (NF) 100 GM TUBE TOPICAL SCH ×3 (09:20→20:57)
[2019-12-11] MEDS: Insulin GLARGINE 100 un/ml 10 ml VIAL SUBCUT SCH (20:52)
[2019-12-12] MEDS: CMCS: Diclofenac 1% GEL (NF) 100 GM TUBE TOPICAL SCH ×3 (09:24→20:31)
[2019-12-12] MEDS: HYDROcodone/ACETAMIN 5/325 mg TAB PO PRN (09:55)
[2019-12-12] MEDS: Insulin GLARGINE 100 un/ml 10 ml VIAL SUBCUT SCH (20:31)
[2019-12-13] MEDS: HYDROcodone/ACETAMIN 5/325 mg TAB PO PRN ×2 (07:37→13:52)
[2019-12-13] MEDS: CMCS: Diclofenac 1% GEL (NF) 100 GM TUBE TOPICAL SCH ×3 (07:44→21:36)
[2019-12-13 07:47] LABS: ABS Eosinophils 0.2 10^3/ul (0-0.6); ABS Monocytes 0.5 10^3/ul (0-0.8); ABS Neutrophils 1.7 10^3/ul (1.5-7.7); Eosinophil % 3.2 %; Hematocrit 35 % (35-47); Hemoglobin 12.1 g/dL (12.0-16.0); Lymphocyte % 55.6 %; Mean Corpuscular HGB Conc 34 g/dL (31-36); Mean Corpuscular Hemoglobin 34 pg (27-31); Mean Corpuscular Volume 99 fL (80-97); Mean Platelet Volume 7.8 fL (7.4-10.4); Platelet Count 236 10^3/uL (150-450); Red Blood Count 3.56 10^6 /uL (3.70-4.87); Red Cell Distribution Width 13 % (10-15); White Blood Count 5.3 10^3/uL (3.5-10.8)
[2019-12-13 08:07] LABS: Albumin 3.4 g/dL (3.2-5.2); Albumin/Globulin Ratio 1.2 (1-3); BUN/Creatinine Ratio 28.9 (8-20); Calcium 8.8 mg/dL (8.6-10.3); EGFR African American 72.2 (>60); EGFR Non-African American 59.7 (>60); Globulin 2.8 g/dL (2-4); Potassium 4.3 mmol/L (3.5-5.0); Total Bilirubin 0.3 mg/dL (0.2-1.0); Total Protein 6.2 g/dL (6.4-8.9)
[2019-12-13] MEDS: Insulin GLARGINE 100 un/ml 10 ml VIAL SUBCUT SCH (21:12)
[2019-12-14] MEDS: CMCS: Diclofenac 1% GEL (NF) 100 GM TUBE TOPICAL SCH ×3 (08:56→20:39)
[2019-12-14] MEDS: HYDROcodone/ACETAMIN 5/325 mg TAB PO PRN (09:00)
[2019-12-14] MEDS: Insulin GLARGINE 100 un/ml 10 ml VIAL SUBCUT SCH (20:32)
[2019-12-15] MEDS: HYDROcodone/ACETAMIN 5/325 mg TAB PO PRN (04:52)
[2019-12-15] MEDS: CMCS: Diclofenac 1% GEL (NF) 100 GM TUBE TOPICAL SCH ×3 (08:54→20:38)
[2019-12-15] MEDS: Insulin GLARGINE 100 un/ml 10 ml VIAL SUBCUT SCH (20:50)
[2019-12-16] MEDS: HYDROcodone/ACETAMIN 5/325 mg TAB PO PRN ×3 (03:11→13:44)
[2019-12-16] MEDS: CMCS: Diclofenac 1% GEL (NF) 100 GM TUBE TOPICAL SCH ×3 (09:56→20:24)
[2019-12-16] MEDS: Insulin GLARGINE 100 un/ml 10 ml VIAL SUBCUT SCH (21:06)
[2019-12-17] MEDS: CMCS: Diclofenac 1% GEL (NF) 100 GM TUBE TOPICAL SCH ×3 (08:08→21:28)
[2019-12-17] MEDS: HYDROcodone/ACETAMIN 5/325 mg TAB PO PRN ×2 (08:09→13:39)
[2019-12-17] MEDS: Insulin GLARGINE 100 un/ml 10 ml VIAL SUBCUT SCH (21:13)
[2019-12-18] MEDS: HYDROcodone/ACETAMIN 5/325 mg TAB PO PRN (05:35)
[2019-12-18] MEDS ORDERED: Bupivacaine 0.25% SDV 30 ML INJ ONE (08:40)
[2019-12-18] MEDS: CMCS: Diclofenac 1% GEL (NF) 100 GM TUBE TOPICAL SCH ×3 (09:17→21:12)
[2019-12-18 11:09] LABS: ABS Eosinophils 0.2 10^3/ul (0-0.6); ABS Lymphocytes 2.8 10^3/ul (1.0-4.8); ABS Monocytes 0.5 10^3/ul (0-0.8); Eosinophil % 2.3 %; Hematocrit 37 % (35-47); Hemoglobin 12.5 g/dL (12.0-16.0); Lymphocyte % 37.9 %; Mean Corpuscular HGB Conc 34 g/dL (31-36); Mean Corpuscular Hemoglobin 34 pg (27-31); Mean Corpuscular Volume 101 fL (80-97); Mean Platelet Volume 7.9 fL (7.4-10.4); Platelet Count 251 10^3/uL (150-450); Red Blood Count 3.72 10^6 /uL (3.70-4.87); Red Cell Distribution Width 13 % (10-15); White Blood Count 7.5 10^3/uL (3.5-10.8)
[2019-12-18] MEDS: Insulin GLARGINE 100 un/ml 10 ml VIAL SUBCUT SCH (20:50)
[2019-12-19] MEDS: CMCS: Diclofenac 1% GEL (NF) 100 GM TUBE TOPICAL SCH ×2 (08:38→13:56)
[2019-12-19 15:19] VITALS: BP 132/52
== END 2019-12-19 15:42 | DRG 60 ==
LOC: PMRU 14:03
PROVIDERS: ADMIT Physical Medicine & Rehabilitation; ATTEND Physical Medicine & Rehabilitation